=== PATIENT | male | born 1945 | race Caucasian/White ===

== ENCOUNTER 2016-12-25 23:48 | Emergency (ER) | payer MEDICARE ==
[2014-06-18 08:34] VITALS: BMI 32.3
[~2016-12-25 23:48] MED LIST: ACTOS45 MG PO; BAYER CHEWABLE81 MG PO; COREG12.5 MG PO; GLUCOPHAGE1000 MG PO; HYZAAR 50-12.51 TAB PO; LIPITOR80 MG; MAGNESIUM GLUC500 M1 PO; MULTIPLE VITAMI1 TA1 PO; PLAVIX75 MG PO; VICTOZA0.6 MG/0.1
== END 2016-12-26 05:03 | disposition home or self-care (01) ==
LOC: D.ER 23:48
DX: R33.9 Retention of urine, unspecified (principal); I10 Essential (primary) hypertension; N40.0 Benign prostatic hyperplasia without lower urinary tract symptoms; E11.9 Type 2 diabetes mellitus without complications; Z95.0 Presence of cardiac pacemaker

== ENCOUNTER 2017-01-03 05:29 | Day surgery (SDC) | payer MEDICARE ==
[2017-01-02 16:19] LABS: HEMATOCRIT 39.4 % (42.0-54.0); HEMOGLOBIN 13.1 g/dL (13.5-17.5); MCH 31.3 pg (26.0-34.0); MCHC 33.2 g/dL (31.0-37.0); MCV 94.3 fL (80.0-100.0); MEAN PLATELET VOLUME 9.8 fL (7.4-10.4); RBC 4.18 10x6/uL (4.20-6.10); RDW 13.8 % (11.5-14.5); WBC 6.3 10x3/uL (4.8-10.8)
[2017-01-02 16:32] LABS: CALC OSMOLALITY 283 mosm/kg (275-300); CALCIUM 8.9 mg/dL (8.5-10.1); CHLORIDE - SERUM 101 mmol/L (98-107); CREATININE - SERUM 0.8 mg/dL (0.6-1.3); POTASSIUM - SERUM 4.3 mmol/L (3.5-5.1); SODIUM 140 mmol/L (136-145); UREA NITROGEN 20 mg/dL (7-18); eGFR NON AFRICAN AMERICAN > 90 mL/min (90-120)
[2017-01-02 16:43] LABS: GLUCOSE 138 mg/dL (74-106)
[~2017-01-03] VITALS: Ht 177.8 cm; Wt 106.6 kg
--- NOTE | ~2017-01-03 | OP ---
PATIENT NAME: MARTA LOTT MEDICAL RECORD: [id number] :46 LOCATION:D[facility] ADMISSION DATE: SURGEON: HILL GUADALUPE MD DATE OF OPERATION: 01/03/2017 SURGEON: Hill Guadalupe MD. ANESTHESIA: General anesthesia by Dr. Stewart Miles. PREOPERATIVE DIAGNOSIS: Urinary retention due to obstructive benign prostatic hypertrophy. FINDINGS: Obstructive trilobar hyperplasia. Prior false passage in the left lateral lobe with old blood clots. Urethral meatus erosion. PROCEDURES PERFORMED: Cystoscopy, GreenLight laser transurethral resection of the prostate, total energy 117,623 joules, laser on time of 19 minutes 11 seconds. SPECIMENS: None. COMPLICATIONS: None. CLINICAL HISTORY: The patient is a 71-year-old male, who has been in chronic urinary retention. He has been on tamsulosin for a number of years, but it had failed to work for him. He is still taking it. Currently, he is on self-intermittent catheterization 3 times a day to drain his bladder. He is also on Plavix for cardiac arrhythmia. At one point, he experienced quite significant gross hematuria after he had difficulty inserting his catheter. This required a visit to the Emergency Room to irrigate his bladder out. He comes in today to have a GreenLight laser transurethral resection of the prostate. His prostate is rather large at about 70-80 grams by digital rectal examination. There are no nodules present to suggest carcinoma. The patient had withheld his Plavix for several days prior to the surgery. He was given Ancef 2 grams IV nutrition assistant to the OR. DESCRIPTION OF PROCEDURE: The patient was given induction of general anesthesia. He was then placed in dorsal lithotomy position and prepped and draped. On examination of the patient, we saw that the urethral meatus has a ventral erosion released from chronic catheterization. We did dilate the urethral meatus to 30-Tuvaluan using male sounds. The resectoscope is 27-Tuvaluan in size. A 30-degree lens with normal saline was used for visualization. The urethra was normal aside from the urethral meatal erosion. There are no strictures. Going up to the prostate, the lateral lobes are obstructive and they meet in the midline. He also has quite a large median lobe which deflects the scope anteriorly. Looking into the bladder, the bladder was heavily trabeculated with diverticula and cellules. There are single ureteral orifices on each side and these are located some distance away from the bladder neck. No bladder tumors were seen. On the left lateral lobe of the prostate, there is an old laceration and false passage, most likely from catheterization trauma. In this area, there are old blood clots also from his prior episode of gross hematuria. We started out with the laser energy of 80 conti. The resection was confined from the bladder neck to just proximal to the verumontanum. The verumontanum OPERATIVE REPORT [id number] MARTA LOTT was easily seen. We started out at the 6 o'clock with 80 conti of power to create a water flow channel. Eventually, once we got past the bladder neck and once the apex of the prostate was well resected to remove the bulk of the lateral lobes and the median lobe, we used a power of 120 conti. Occasionally, toward the end of the procedure as the tissue became more desiccated, we increased the power to 150 conti to facilitate removal of tissue faster. Once we had created a nice channel and gone down to the pseudocapsule and most of the planes, any visible venous bleeding was coagulated using the coagulation setting. No arterial bleeding was present at all during the entire surgery. Setting at the external urinary sphincter, we could see a clear channel all the way through the bladder neck into the bladder. With the water flow turned off, no visible bleeding was noted. We then removed the scope. A 22-Tuvaluan 3-way Carlson catheter was inserted into the bladder. The balloon was inflated with 30 cc of sterile water. We placed a catheter plug into the inflow port of the catheter. The catheter was put to bag drainage. The patient was then awakened and brought to the recovery room. He will go home with the Carlson catheter stay. His is a nurse and she knows how to remove the catheter for him tomorrow morning. I would hold off until the gross hematuria stops before restarting the Plavix. TRANSINT:[id number] Voice Confirmation ID: [id number] DOCUMENT ID: [id number] HILL GUADALUPE MD CC: [id number] DICTATION DATE: 01/03/17924 INSTRUCTOR CREELER: 01/03/17 1013 [facility] [address] [place] [address]
[~2017-01-03 05:29] MED LIST changes: +BETAPACE 80 MG80 MG PO; +CO Q-10200 MG PO; +COLACE100 MG PO; +FLOMAX0.4 MG PO; -VICTOZA0.6 MG/0.1; +VICTOZA0.6 MG/0.1 SQ
[2017-01-03 05:50] VITALS: BP 118/76; Ht 177.8 cm; Wt 106.6 kg
--- NOTE | 2017-01-03 08:15 | NUR ---
ARMS LEFT OUT BY SIDE, INESSA.
--- NOTE | 2017-01-03 11:15 | NUR ---
1105-DISCHARGE INSTRUCTIONS GIVEN TO PATIENT AND . ESCORTED VIA WHEELCHAIR TO PERSONAL CAR, LEFT WITH DRIVING.
== END 2017-01-03 11:05 | disposition home or self-care (01) ==
LOC: D.OPS 05:29 → D.PAN 07:30 → D.OPS 07:30 → D.PAN 08:30 → D.OPS 08:30
PROVIDERS: Anesthesiology
DX: N40.1 Benign prostatic hyperplasia with lower urinary tract symptoms (principal); R33.8 Other retention of urine; N36.8 Other specified disorders of urethra

== ENCOUNTER → 2017-02-18 17:27 | Outpatient (CLI) | payer MEDICARE ==
[2017-01-03 05:50] VITALS: BMI 33.7
[2017-02-18 18:19] LABS: APPEARANCE CLOUDY (CLEAR); COLOR YELLOW (YELLOW); GLUCOSE NEGATIVE (NEGATIVE); KETONE NEGATIVE (NEGATIVE); LEUKOCYTE ESTERASE 2+ (NEGATIVE); NITRITE POSITIVE (NEGATIVE); PROTEIN 1+ mg/dL (NEGATIVE); SPECIFIC GRAVITY 1.015 (1.005-1.020); UROBILINOGEN NORMAL (NORMAL)
[2017-02-18 18:20] LABS: BILIRUBIN NEGATIVE (NEGATIVE)
[2017-02-18 18:22] LABS: BACTERIA MODERATE /hpf (NONE SEEN); EPITHELIAL CELLS 0-5 /hpf (0-5); MUCUS <1+ /lpf (NONE SEEN); WHITE CELLS - URINE >50 /hpf (0-5)
== END | disposition home or self-care (01) ==
LOC: D.LABREF 17:27
PROVIDERS: Urology
DX: N39.0 Urinary tract infection, site not specified (principal)

== ENCOUNTER → 2017-02-21 10:45 | Outpatient (CLI) | payer MEDICARE ==
[2017-01-03 05:50] VITALS: BMI 33.7
== END | disposition home or self-care (01) ==
LOC: D.CT 10:45
DX: R10.9 Unspecified abdominal pain (principal); Z87.442 Personal history of urinary calculi; N39.0 Urinary tract infection, site not specified

== ENCOUNTER → 2017-03-04 19:18 | Outpatient (CLI) | payer MEDICARE ==
[2017-01-03 05:50] VITALS: BMI 33.7
[2017-03-04 21:23] LABS: APPEARANCE HAZY (CLEAR); BILIRUBIN NEGATIVE (NEGATIVE); COLOR YELLOW (YELLOW); GLUCOSE 100 mg/dL (NEGATIVE); KETONE NEGATIVE (NEGATIVE); LEUKOCYTE ESTERASE TRACE (NEGATIVE); NITRITE NEGATIVE (NEGATIVE); PROTEIN NEGATIVE (NEGATIVE); SPECIFIC GRAVITY 1.015 (1.005-1.020); UROBILINOGEN NORMAL (NORMAL)
[2017-03-04 21:25] LABS: BACTERIA MODERATE /hpf (NONE SEEN); EPITHELIAL CELLS OCC /hpf (0-5); HYALINE CAST OCC /lpf (NONE SEEN); RED CELLS - URINE >50 /hpf (0-5)
== END | disposition home or self-care (01) ==
LOC: D.LABREF 19:18
PROVIDERS: Urology
DX: N39.0 Urinary tract infection, site not specified (principal)

== ENCOUNTER 2017-03-11 05:20 | Day surgery (SDC) | payer MEDICARE ==
[2017-03-08 14:05] LABS: HEMATOCRIT 37.4 % (42.0-54.0); HEMOGLOBIN 12.3 g/dL (13.5-17.5); MCH 30.1 pg (26.0-34.0); MCHC 32.9 g/dL (31.0-37.0); MCV 91.4 fL (80.0-100.0); MEAN PLATELET VOLUME 9.7 fL (7.4-10.4); RBC 4.09 10x6/uL (4.20-6.10); RDW 14.3 % (11.5-14.5); WBC 4.5 10x3/uL (4.8-10.8)
[2017-03-08 14:33] LABS: ANION GAP 14.7 mmol/L (8-16); CARBON DIOXIDE 25.8 mmol/L (21.0-32.0); CREATININE - SERUM 1.1 mg/dL (0.6-1.3); POTASSIUM - SERUM 4.5 mmol/L (3.5-5.1)
[~2017-03-11] VITALS: Ht 177.8 cm; Wt 104.8 kg
[~2017-03-11 05:20] MED LIST changes: +CIPRO500 MG PO
[2017-03-11 06:32] VITALS: BP 137/79; Ht 177.8 cm; Wt 104.8 kg
--- NOTE | 2017-03-11 07:59 | NUR ---
0739 MERRICK UROJET INSERTED, INESSA.
--- NOTE | 2017-03-11 15:20 | OP ---
PATIENT NAME: MARTA LOTT MEDICAL RECORD: [id number] :46 LOCATION:D[facility] ADMISSION DATE: SURGEON: HILL GUADALUPE MD DATE OF OPERATION: 03/11/2017 SURGEON: Hill Guadalupe MD ANESTHESIA: MAC by Dr. Katz. PREOPERATIVE DIAGNOSES: Recurrent urinary tract infections, sigmoid diverticulitis, check for colovesical fistula. FINDINGS: Normal penile urethra. Lateral lobes still enlarged, signs of healing from his TURP. Very heavily trabeculated bladder. Due to bleeding from prostatic veins, I could not detect any fistula. PROCEDURES: Cystoscopy. BLOOD LOSS: None. CLINICAL HISTORY: This is a 71-year-old male, who was in urinary retention. In December of this year, he had a GreenLight laser TURP. Since then, he has had recurrent episodes of urinary tract infections. His latest CT shows sigmoid diverticulitis and he is currently on Cipro and Flagyl. This raised the question whether or not he had a colovesical fistula causing his recurrent UTIs. He comes now to have cystoscopy to check for fistula. Since he is already on antibiotics, we did not give him any further antibiotics. DESCRIPTION OF PROCEDURE: The patient was given IV sedation. He was placed in the dorsal lithotomy position and prepped and draped. His penile urethra is at the level of the barnard of the glans penis. Male sounds were placed to dilate the urethral meatus to 22-Eritrean. A 17-Eritrean cystoscope with 30-degree lens was used for visualization. The penile urethra was normal. No strictures or tumors were seen. Prostatic urethra still shows enlargement of the lateral lobes, which are still vascular. There was still some soft tissue at the apex and the bladder neck from the TURP surgery. Going into the bladder, the passage of the scope through the prostatic urethra induced some bleeding from the prostatic urethral veins. View of the bladder was therefore limited due to the blood in the urine. The bladder wall was heavily trabeculated. I could not detect any signs of a colovesical fistula. The bladder was emptied through the scope sheath and the sheath was removed entirely. The patient was brought back to the recovery room. TRANSINT:[id number] Voice Confirmation ID: [id number] DOCUMENT ID: [id number] HILL GUADALUPE MD at 5423 CC: [id number] DICTATION DATE: 03/11/17 0810 SENIOR JAVA PROGRAMMER ANALYST: 03/11/17 1039 [facility] [place] 03/11/17 [place] [id number] [place] [id number]
== END 2017-03-11 09:30 | disposition home or self-care (01) ==
LOC: D.OPS 05:20 → D.PAN 07:30 → D.OPS 07:30
PROVIDERS: Anesthesiology
DX: N30.00 Acute cystitis without hematuria (principal); I25.10 Atherosclerotic heart disease of native coronary artery without angina pectoris; I10 Essential (primary) hypertension; E11.9 Type 2 diabetes mellitus without complications; K21.9 Gastro-esophageal reflux disease without esophagitis; Z01.812 Encounter for preprocedural laboratory examination

== ENCOUNTER → 2017-03-27 21:42 | Outpatient (CLI) | payer MEDICARE ==
[2017-03-11 06:32] VITALS: BMI 33.2
[2017-03-27 22:14] LABS: APPEARANCE CLEAR (CLEAR); COLOR YELLOW (YELLOW); LEUKOCYTE ESTERASE 2+ (NEGATIVE); NITRITE NEGATIVE (NEGATIVE); PROTEIN NEGATIVE (NEGATIVE)
[2017-03-27 22:15] LABS: BILIRUBIN NEGATIVE (NEGATIVE); GLUCOSE NEGATIVE (NEGATIVE); KETONE NEGATIVE (NEGATIVE); UROBILINOGEN NORMAL (NORMAL)
[2017-03-27 22:16] LABS: BACTERIA MODERATE /hpf (NONE SEEN); RED CELLS - URINE 0-5 /hpf (0-5); WHITE CELLS - URINE 25-50 /hpf (0-5)
== END | disposition home or self-care (01) ==
LOC: D.LABREF 21:42
PROVIDERS: Urology
DX: N39.0 Urinary tract infection, site not specified (principal)

== ENCOUNTER → 2017-05-06 12:52 | Outpatient (CLI) | payer MEDICARE ==
[2017-03-11 06:32] VITALS: BMI 33.2
== END | disposition home or self-care (01) ==
LOC: D.RAD 10:30
DX: M25.511 Pain in right shoulder (principal)

== ENCOUNTER 2017-05-09 04:39 | Inpatient (IN) | payer MEDICARE ==
[~2017-05-09] VITALS: Ht 180.3 cm; Wt 103.9 kg
--- NOTE | ~2017-05-09 | HEMODYNAMI ---
PATIENT:MARTA LOTT MEDICAL RECORD: [id number] : 46 LOCATION:[facility] ADMISSION DATE: 05/09/17 Generatedon:05/16/201713:29 Patient name: MARTA LOTT Patient #: [id number] SSN: : 1945 Date of study: 05/16/2017 Page: Of Hemodynamic Procedure Report Patient Data Patient Demographics Procedure consent was obtained First Name: MARTA Gender: Male Last Name: OREN : 1945 [facility] Initial: C Age: 71 year(s) Patient #: [id number] Race: Unknown Additional ID: [id number] Contact details [address]: [address] [place] [address] State: [place] City: [place] Zip code: [address] Past Medical History Allergies Allergen Reaction Date Comments Reported Other allergy 05/16/2017 Amiodarone Admission Admission Data Admission Date: 05/09/2017 Admission Time: 7:28 Room #: D.2231 Height (in.): 71 BSA: 2.23 (m2) Height (cm.): 180.34 BMI: 31.94 (kg/m2) Weight (lbs.): 229 Weight (kg.): 103.87 Procedure Procedure Types Cath Procedure Diagnostic Procedure PAULINA Procedure Description Procedure Date Procedure Date: 05/16/2017 Procedure Start Time: 13:09 Procedure End Time: 13:22 Procedure Staff Name Function Baldemar Velarde MD Performing Physician Charity Mcclellan RN Nurse Andra Gillette RT Monitor Mignon May RT Monitor Procedure Data Procedure Complications No complications Procedure Medications Medication Administration Route Dosage Oxygen NC 2 l/min Hurricaine [place] P.O. 1 Sprays Refer to Anesthesia Notes for Sedation Medications Hemodynamics Rest BSA: 2.23 (m2) O2 Consumption: Estimated: 252.51 (ml/min) O2 Consumption indexed : Estimated:113.23 (ml/min/m) Heart Rate: 63 (bpm) Snapshots Pre Cath Intra NCS Post Cath Vital Signs Time Heart Resp SPO2 NIBP (mmHg) Rhythm Pain Sedation Rate (ipm) (%) Status Level (bpm) 13:07:09 60 10 96 181/84(137) NSR 0 (11) 10(A) , No pain 13:11:44 59 18 100 162/65(93) NSR 0 (11) 9(A) , No pain 13:16:02 60 11 100 138/59(106) NSR 0 (11) 9(A) , No pain 13:21:32 59 20 99 130/57(84) NSR 0 (11) 10(A) , No pain Medications Time Medication Route Dose Verified Delivered Reason Notes Effective ness by by 13:09:07 Oxygen NC 2 Baldemar Nash used for l/min St. Atif Mcclellan RN procedure MD 13:09:17 Hurricaine P[address]O. 1 Baldemar Nash Per [place] Sprays St. Atif Mcclellan RN physician 13:09:21 Refer to Baldemar Nash Anesthesia St. Atif Mcclellan RN Notes for MD Sedation Medications Procedure Log Time Note 12:54:01 Patient Height : 180.34 cm 12:54:07 Patient Weight : 103.87 kg 12:55:21 Diagnostic Cath status Elective 12:55:27 Andra Counts RT(R) sent for patient. Start room use. 12:55:28 Time tracking: Regular hours 12:55:33 Plan of Care:Hemodynamics will remain stable., Cardiac rhythm will remain stable., Comfort level will be maintained., Respiratory function will remain adequate., Patient/ family verbilizes understanding of procedure., Procedure tolerated without complication., Recovers from procedure without complications.. 12:55:44 Patient received from Med/Surg to CCL 2 Alert and oriented. Tansferred to table in Supine position. 13:03:44 Warm blankets applied, and donnie hugger turned on for patient comfort. 13:03:44 Correct patient and procedure confirmed by team. 13:03:47 Signed procedure consent form obtained from patient. 13:03:49 ECG and BP/O2 sat monitors applied to patient. 13:03:55 H&P Date Dictated: 05/15/2017 Within 30 days and on chart.. 13:03:57 Pre-procedure instructions explained to patient. 13:04:01 Family in waiting room. 13:04:03 Patient NPO since Midnight. 13:04:50 Patient allergic to Other allergyAmiodarone 13:05:54 Vital chart was started 13:06:52 Baseline sample Acquired. 13:06:56 Full Disclosure recording started 13:07:19 IV patent on arrival in left forearm with 0.9% NaCl at [facility]. 13:07:25 Lab results completed and on chart. 13:07:29 Physician arrived 13:07:32 --------ALL STOP TIME OUT------ 13:07:34 Final Timeout: patient, procedure, and site verified with staff and physician. All members of the team are in agreement. 13:07:43 Sedation plan: TIVA Propofol 13:09:07 Oxygen 2 l/min NC was administered by Charity Mcclellan RN; used for procedure; 13::17 Hurricaine [place] 1 Sprays P.O. was administered by Charity Mcclellan RN; Per physician; 13:09:21 Refer to Anesthesia Notes for Sedation Medications was administered by Charity Mcclellan RN; ; 13:09:50 Charlie present and monitoring patient for TIVA. 13:09:52 Procedure started. 13:10:24 Mani Donor Processor present for PAULINA. 13:10:25 PAULINA started. 13:20:29 PAULINA completed. 13:20:44 Procedure ended.(Physican Out) 13:21:04 Post procedure rhythm: unchanged. 13:21:10 Post procedure instruction explained to patient.Patient verbalizes understanding. 13:21:21 Procedure Complication : No complications 13:21:31 Vital chart was stopped 13:21:32 See physician's report for complete and final results. 13:21:38 Report given to Med/Surg. 13:21:42 Patient transfered to Med/Surg with Bed. 13:22:10 Procedure ended. 13:22:10 Full Disclosure recording stopped 13:22:13 End room use (Document Last) Signature Audit Mcconnell Stage Time Signature Unsigned Intra-Procedure 05/16/2017 Mignon May 1:29:16 PM RT(R) Signatures Monitor : Andra Signature : Counts RT Date : Time : Monitor : Mignon May Signature : RT Date : Time : [place] [id number] [facility] [address]
--- NOTE | ~2017-05-09 | TEE ---
PATIENT:MARTA LOTT MEDICAL RECORD: [id number] LOCATION:D.[facility] AGE OF PATIENT: 71 ADMISSION DATE: 05/09/17 SEX: M REFERRING PHYSICIAN: INTERPRETING PHYSICIAN: VIVIANA RIVERA MD TRANSESOPHAGEAL ECHOCARDIOGRAM PAULINA CHARGE Y INDICATIONS: ASSESS FOR VEGATATIONNS PREMEDICATIONS: PATIENT'S RESPONSE PROCEDURE DOPPLER MEASUREMENTS: LVIT LA PA 102 RA LVOT 97.0 RVOT 78.0 Asc. Ao 154 AV Gradient Peak 9.5 AV Mean 4.6 AV Area 2.5 MV Gradient Peak 7.2 MV Mean 2.7 MV Area INTERPRETATION: Doppler: 2-D: VEG NOTED ON ICD WIRE AND TV. COLOR FLOW DOPPLER NORMAL SALINE STUDY: MISCELLANOUS: DIAGNOSIS: PLAN: Development And Planning Engineer:3 Dr. Velarde Director Of Religious Life: Andres JIMENEZ COMMENTS: DATE OF SERVICE: 05/16/2017 Transesophageal Note DESCRIPTION OF PROCEDURE: General sedation via TIVA anesthesia, transesophageal Omniplane probe was placed in the distal esophagus and proximal stomach without difficulty. FINDINGS: LVH present. LV internal dimensions are normal. Wall motion is TRANSESOPHAGEAL ECHOCARDIOGRAM REPORT [id number] MARTA LOTT normal. EF is greater than 55%. Aortic valve is tricuspid with adequate opening. No significant AI by color flow imaging. Left atrium is well visualized. Left atrial appendage is well visualized with normal contractility. Mitral valve shows no prolapse, adequate excursion and mild MR. Right-sided chambers appear grossly normal. Mild TR. MISCELLANEOUS: ICD lead noted in the right atrium has fibrinous strands consistent with infected hardware. This was noticed in multiple views and planes. This was discussed with the patient's and Dr. Conklin as well. TRANSINT:[id number] Voice Confirmation ID: [id number] DOCUMENT ID: [id number] VIVIANA RIVERA MD CC: [id number] DICTATION DATE: 05/16/17 1353 TILE EDGER: 05/16/17 194 ADM [place] [id number] [place] [id number]
[2017-05-09 05:40] LABS: BASOPHILS 0 % (0-2); EOSINOPHILS 0 % (0-7); HEMATOCRIT 35.1 % (42.0-54.0); HEMOGLOBIN 12.3 g/dL (13.5-17.5); IMMATURE GRANULOCYTES 0.2 % (0-5); LYMPHOCYTES 4.6 % (15-50); MCH 30.5 pg (26.0-34.0); MCV 87.1 fL (80.0-100.0); MEAN PLATELET VOLUME 9.3 fL (7.4-10.4); MONOCYTES 1.5 % (2-11); NEUTROPHILS 93.7 % (40-80); RBC 4.03 10x6/uL (4.20-6.10); RDW 15.1 % (11.5-14.5); WBC 6.1 10x3/uL (4.8-10.8)
[2017-05-09 05:49] LABS: PLATELET COUNT 153 10x3/uL (130-400)
[2017-05-09 05:52] LABS: ALBUMIN 3.4 g/dL (3.4-5.0); ANION GAP 14.9 mmol/L (8-16); BILIRUBIN - TOTAL 1.8 mg/dL (0.2-1.3); CALCIUM 8.8 mg/dL (8.5-10.1); CARBON DIOXIDE 25.5 mmol/L (21.0-32.0); CREATININE - SERUM 1.5 mg/dL (0.6-1.3); POTASSIUM - SERUM 3.4 mmol/L (3.5-5.1)
[2017-05-09 05:59] LABS: MAGNESIUM - SERUM 1.2 mg/dL (1.8-2.4)
[2017-05-09 06:15] LABS: C-REACTIVE PROTEIN 35.5 mg/dL (0.0-0.9)
[2017-05-09 07:04] LABS: INR 1.02 (0.85-1.17); PROTIME 13.3 SECONDS (11.6-15.0)
--- NOTE | 2017-05-09 08:00 | NUR ---
PT RECEIVED TO FLOOR FROM ER, ORIENTED TO ROOM, DENIES NEEDS, BED LOWEST POSITION, CALL LIGHT IN REACH, WILL CONTINUE TO MONITOR
[2017-05-09 11:12] LABS: APPEARANCE CLOUDY (CLEAR); BILIRUBIN NEGATIVE (NEGATIVE); COLOR ORANGE (YELLOW); EPITHELIAL CELLS 0-5 /hpf (0-5); GLUCOSE 100 mg/dL (NEGATIVE); KETONE SMALL mg/dL (NEGATIVE); LEUKOCYTE ESTERASE TRACE (NEGATIVE); NITRITE NEGATIVE (NEGATIVE); PROTEIN TRACE mg/dL (NEGATIVE); RED CELLS - URINE 0-5 /hpf (0-5); SPECIFIC GRAVITY 1.025 (1.005-1.020); WHITE CELLS - URINE 0-5 /hpf (0-5)
[2017-05-09 11:13] LABS: AMORPHOUS SEDIMENT <1+ /lpf (NONE SEEN); BACTERIA MODERATE /hpf (NONE SEEN); HYALINE CAST 0-5 /lpf (NONE SEEN); MUCUS <1+ /lpf (NONE SEEN)
[2017-05-09 12:37] VITALS: Ht 180.3 cm; Wt 103.9 kg
[2017-05-09 14:21] VITALS: BP 118/59
[2017-05-09 14:58] LABS: ERYTHROCYTE SEDIMENTATION RATE 55 mm/hr (0-20)
[2017-05-09 17:01] VITALS: BP 133/46
--- NOTE | 2017-05-09 19:40 | NUR ---
ASSESSMENT PER FLOW SHEET.CUSTOMER SERVICE CORRESPONDENCE CLERK CONTROLLING PAIN.BATH PER .DENIES NEEDS AT PRESENT.CALL LIGHT IN REACH.MONITOR FOR NEEDS.
[2017-05-09 20:00] VITALS: BP 108/49
[2017-05-10] VITALS: BP 112/67
--- NOTE | 2017-05-10 00:55 | NUR ---
REMAINS AT BEDSIDE.PT WITHOUT DISTRESS.TELEMETRY AVAILABLE 66 SR WITH FIRST DEGREE BLOCK PER COMMERCIAL FISHERMAN.
--- NOTE | 2017-05-10 02:35 | NUR ---
SLEEPING ON BACK,WITHOUT DISTRESS. REMAINS AT BEDSIDE.
[2017-05-10 04:00] VITALS: BP 116/49
--- NOTE | 2017-05-10 05:14 | NUR ---
STATES PAIN 8/10 AFTER BOLUS ORDERED. INSTRUCTED DELIVERY MERCHANDISER USE TILL PAIN CONTROLLED
--- NOTE | 2017-05-10 05:31 | NUR ---
BS 181,TREATMENT ORDERED DECLINED PER PT AND . REMAINS WITHOUT CHANGE.NPO ORDERED
[2017-05-10 06:52] LABS: HEMATOCRIT 28.3 % (42.0-54.0); LYMPHOCYTES 3.6 % (15-50); MCH 30.2 pg (26.0-34.0); MCHC 34.6 g/dL (31.0-37.0); MCV 87.3 fL (80.0-100.0); RBC 3.24 10x6/uL (4.20-6.10); RDW 15.3 % (11.5-14.5)
[2017-05-10 06:58] LABS: HEMOGLOBIN 9.8 g/dL (13.5-17.5); PLATELET COUNT 113 10x3/uL (130-400); WBC 8.1 10x3/uL (4.8-10.8)
[2017-05-10 07:09] LABS: ANION GAP 12.4 mmol/L (8-16); CALCIUM 7.8 mg/dL (8.5-10.1); CARBON DIOXIDE 26.4 mmol/L (21.0-32.0); POTASSIUM - SERUM 3.8 mmol/L (3.5-5.1)
[2017-05-10 07:11] LABS: CREATININE - SERUM 2.8 mg/dL (0.6-1.3)
--- NOTE | 2017-05-10 07:45 | NUR ---
PT AOX4 RESP EVEN AND NONLABORED PT DENIES NEEDS AT THIS TIME IV TO LEFT WRIST PATENT AND INTACT AT THIS TIME SRX2 BED AT LOWEST SETTING CALL LIGHT WITHIN REACH WILL CONTINUE TO MONITOR
--- NOTE | 2017-05-10 08:12 | NUR ---
Patient Name: MARTA LOTT Admission Status: ER Accout number: [id number] Admission Date: 05-09-2017 : 1945 Admission Diagnosis: Attending: MICHELLE SHIN Current LOS: 1 Anticipated DC Date: 05-13-2017 Planned Disposition: Home Primary Insurance: [facility] Discharge Planning Comments: CM MET WITH PATIENT AND (JANET) REGARDING D/C NEEDS AND PLANS. STATED SHE WILL DRIVE HIM HOME WHEN DISCHARGED. THERE IS ONE STEP TO ENTER HOME AND ONE FLIGHT OF STAIRS INSIDE HOME WHICH PATIENT DOES NOT USE. PATIENT IS INDEPENDENT WITH HIS CARE AND IS A DIABETIC/CHECKS HIS SUGAR DAILY AND PRN PER . PATIENTS PCP IS DR. COBB AND PHARMACY IS [facility] IN [place]. DOES NOT THINK PATIENT WILL NEED HOME HEALTH AT THIS TIME. CM WILL CONTINUE TO FOLLOW PATIENT WITH D/C NEEDS AND PLANS. PCP DR[facility]- [phone] JANET () [phone] Cath Lab Nurse: Kristen Doe Is the patient Alert and Oriented? Yes 0 * How many steps to enter\exit or inside your home? 1/1FLIGHT 0 * PCP DR. COBB 0 * [facility] 0 * Preadmission Environment Home with Family 0 * ADLs Independent 0 * Equipment Glucometer 0 * List name and contact numbers for known caregivers / representatives who currently or will assist patient after discharge: JANET () [phone] 0 * Community resources currently utilized None 0 * Additional services required to return to the preadmission environment? Yes 0 * Can the patient safely return to the preadmission environment? Yes 0 * Has this patient been hospitalized within the prior 30 days at any hospital? No 0 Grand Total: 0
[2017-05-10 08:32] VITALS: BP 88/43
--- NOTE | 2017-05-10 09:12 | NUR ---
DOCUMENTATION FOR 05/09 ENTERED ON WRONG PATIENT
[2017-05-10 14:13] VITALS: BP 135/55
--- NOTE | 2017-05-10 16:15 | NUR ---
RECEIVED PT FROM OR WITH BLOCK TO RT SHOULDER, NOTED SCANT BLEEDING ON DRESSING.
[2017-05-10 17:00] VITALS: BP 129/66
--- NOTE | 2017-05-10 17:05 | NUR ---
returned from pacu per bed. awake and alert. dressing to right shoulder with drainage noted-outlined to monitor. vital signs per flowsheet. call light in reach. at bedside
[2017-05-10 17:35] LABS: PROTEIN - BODY FLUID 7.4 G/DL
[2017-05-10 19:14] LABS: EOS BF 7 %; LYMPH - BF 25 %; MACROPHAGES BF 1 %; MESOTHELIALS BF 1 %; NEUT - BF 66 %
--- NOTE | 2017-05-10 19:20 | NUR ---
ALERT/AWAKE RATES PAIN LEVEL OF RT SHOULDER AT 8 ON NUMBER SCALE. IN CONTACT ISOLATION FOR MRSA. IS PRESENT IN ROOM. RT ARM ELEVATED ON PILLOW. DRSG ON RT SHOULDER C/D/I. IV IN L WRIST WITH NS INFUSING AT 125 ML/HR. VITAL SIGNS STABLE. HAS SUBSURFACE AUGMENTEE OPERATOR WITH DILAUDID FOR PAIN CONTROL. ORIENTED TO CL FOR ANY NEEDS.
[2017-05-10 20:00] VITALS: BP 116/63
--- NOTE | 2017-05-10 20:20 | NUR ---
ADMIN VANC IV PER ORDER. CHECKED BS AT 267. HOOKED UP SCD'S TO [facility]. VITAL SIGNS STABLE.
--- NOTE | 2017-05-10 23:20 | NUR ---
ADMIN TYLENOL 650MG PO FOR ELEVATED TEMP 100.8 F. REQUESTED ICE PACK FOR RT ARM. SOME SWELLING NOTED. WILL CONT TO MONITOR.
[2017-05-11 00:08] VITALS: BP 124/60
--- NOTE | 2017-05-11 01:29 | NUR ---
RECEIVED REPORT FROM ANGELA DHILLON AND CARE OF PT ASSUMED. PT LYING IN SUPINE POSITION WITH EYES CLOSED. IV IN LEFT WRIST PATENT WITH NS INFUSING AT 125 ML / HR. WILL MONITOR CLOSELY FOR NEEDS.
[2017-05-11 04:00] VITALS: BP 126/63
[2017-05-11 05:26] LABS: ANION GAP 13.4 mmol/L (8-16); BILIRUBIN - TOTAL 0.7 mg/dL (0.2-1.3); CALCIUM 7.8 mg/dL (8.5-10.1); CARBON DIOXIDE 21.3 mmol/L (21.0-32.0); CREATININE - SERUM 2.1 mg/dL (0.6-1.3); POTASSIUM - SERUM 3.7 mmol/L (3.5-5.1); PROTEIN - SERUM 5.6 g/dL (6.4-8.2)
[2017-05-11 05:29] LABS: BASOPHILS 0.1 % (0-2); EOSINOPHILS 0.8 % (0-7); HEMATOCRIT 28.8 % (42.0-54.0); HEMOGLOBIN 9.6 g/dL (13.5-17.5); IMMATURE GRANULOCYTES 0.6 % (0-5); LYMPHOCYTES 9.9 % (15-50); MCH 29.6 pg (26.0-34.0); MCHC 33.3 g/dL (31.0-37.0); MCV 88.9 fL (80.0-100.0); MEAN PLATELET VOLUME 9.5 fL (7.4-10.4); MONOCYTES 7.5 % (2-11); NEUTROPHILS 81.1 % (40-80); RBC 3.24 10x6/uL (4.20-6.10); RDW 15.4 % (11.5-14.5); WBC 7.1 10x3/uL (4.8-10.8)
[2017-05-11 05:31] LABS: ALBUMIN 2.1 g/dL (3.4-5.0)
[2017-05-11 05:34] LABS: PLATELET COUNT 140 10x3/uL (130-400)
--- NOTE | 2017-05-11 08:15 | NUR ---
DRESSING TO R SHOULDER COVERED WITH PLASTIC. PATIENT SHOWERED. DENIES ANY NEEDS AT THIS TIME.
--- NOTE | 2017-05-11 09:05 | NUR ---
ASSESSMENT COMPLETE. IV TO L WRIST PATENT. NS INFUSING AT 125 CC/HR VIA PUMP. IN HOME TUTOR DILAUDID 0.2-10-4 IN USE FOR PAIN CONTROL. GAUGER CHIEF SHOWING SR 71 PER TECH. O2 3L NC IN USE. DRESSING TO R SHOULDER INTACT. SWELLING NOTED TO R ARM. AT BEDSIDE. DENIES ANY NEEDS AT THIS TIME.
[2017-05-11 09:50] VITALS: BP 118/66
--- NOTE | 2017-05-11 10:39 | NUR ---
RESTING QUIELTY IN BED. DENIES ANY NEEDS AT PRESENT.
[2017-05-11 11:51] VITALS: BP 124/67
--- NOTE | 2017-05-11 15:18 | NUR ---
SITTING UP IN CHAIR. AT BEDSIDE. DENIES ANY NEEDS AT THIS TIME.
[2017-05-11 16:20] VITALS: BP 112/72
--- NOTE | 2017-05-11 17:41 | NUR ---
NO CHANGES NOTED AT PRESENT.
--- NOTE | 2017-05-11 19:00 | NUR ---
REPORT RECEIVED AND CARE OF PT ASSUMED. PT SITTING UP IN CHAIR AT THIS TIME. IV IN LEFT FA PATENT WITH NS INFUSING AT 125 ML / HR. O2 IN USE VIA NC AT 3L. DRESSING ON RIGHT SHOULDER CLEAN, DRY AND INTACT. TELEMETRY REPORTS SR AT 76. WILL MONITOR CLOSELY FOR NEEDS. CALL LIGHT WITHIN REACH.
[2017-05-11 20:00] VITALS: BP 132/85
--- NOTE | 2017-05-11 21:00 | NUR ---
HS MEDICATIONS GIVEN. FSBS 242 THIS CHECK REQUIRING COVERAGE WITH 8 UNITS OF HUMALOG PER SLIDING SCALE. WILL CONTINUE TO MONITOR FOR NEEDS. IS AT BEDSIDE.
--- NOTE | 2017-05-11 23:14 | NUR ---
PT RESTING IN SUPINE POSITION WITH UNLABORED BREATHING. IV IN LEFT FA PATENT. IS AT BEDSIDE. CALL LIGHT WITHIN REACH.
[2017-05-12] VITALS: BP 139/74
[2017-05-12 04:00] VITALS: BP 137/79
[2017-05-12 05:24] LABS: BASOPHILS 0.1 % (0-2); HEMATOCRIT 30.9 % (42.0-54.0); HEMOGLOBIN 10.2 g/dL (13.5-17.5); IMMATURE GRANULOCYTES 0.7 % (0-5); LYMPHOCYTES 14.6 % (15-50); MCH 29.7 pg (26.0-34.0); MCV 89.8 fL (80.0-100.0); MEAN PLATELET VOLUME 9.5 fL (7.4-10.4); MONOCYTES 10.3 % (2-11); NEUTROPHILS 73.3 % (40-80); PLATELET COUNT 144 10x3/uL (130-400); RBC 3.44 10x6/uL (4.20-6.10); RDW 15.4 % (11.5-14.5); WBC 6.8 10x3/uL (4.8-10.8)
[2017-05-12 05:53] LABS: ANION GAP 15.6 mmol/L (8-16); BILIRUBIN - TOTAL 0.5 mg/dL (0.2-1.3); CALCIUM 8.2 mg/dL (8.5-10.1); POTASSIUM - SERUM 3.6 mmol/L (3.5-5.1); PROTEIN - SERUM 5.7 g/dL (6.4-8.2)
[2017-05-12 05:56] LABS: CREATININE - SERUM 1.3 mg/dL (0.6-1.3)
--- NOTE | 2017-05-12 06:09 | NUR ---
BLOOD SUGAR 210 THIS AM REQUIRING COVERAGE WITH 8 UNITS OF HUMALOG PER SLIDING SCALE.
--- NOTE | 2017-05-12 07:34 | NUR ---
SLEEPING, BREATHING EVEN AND UNLABORED, AT BEDSIDE, NO DISTRESS NOTED, BED LOWEST POSITION, CALL LIGHT IN REACH, WILL CONTINUE TO MONITOR
[2017-05-12 08:00] VITALS: BP 141/69
[2017-05-12 11:00] VITALS: BP 137/73
[2017-05-12 18:23] VITALS: BP 137/65
--- NOTE | 2017-05-12 19:00 | NUR ---
REPORT RECEIVED AND CARE OF PT ASSUMED. PT LYING IN SEMI BLANDON'S POSITION VISITING WITH FAMILY MEMBER. IV IN LEFT FA PATENT WITH NS INFUSING AT 75 ML / HR. DESIGN TECHNOLOGY PROFESSOR / DILAUDID IN USE FOR PAIN CONTROL, WITH PAIN WELL CONTROLLED AT THIS ASSESSMENT. DRESSING ON RIGHT SHOULDER CLEAN AND DRY. TELEMETRY REPORTS ST WITH OCC PVC'S AT THIS TIME. WILL MONITOR [place] FOR NEEDS. CALL LIGHT WITHIN REACH.
[2017-05-12 20:00] VITALS: BP 135/71
--- NOTE | 2017-05-12 20:38 | NUR ---
HS MEDICATIONS GIVEN. FSBS 211 AT THIS CHECK REQUIRING COVERAGE WITH 8 UNITS OF HUMALOG. GAVE APPLE JUICE FOR HS SNACK, MIXED WITH MIRALAX PER ORDER. WILL MONITOR CLOSELY FOR NEEDS. CALL LIGHT WITHIN REACH.
--- NOTE | 2017-05-12 21:10 | NUR ---
PATIENT ASSISTED UP TO USE RESTROOM TO VOID. STILL NO BM THIS SHIFT.
[2017-05-13] VITALS: BP 134/75
[2017-05-13 03:35] LABS: BASOPHILS 0.2 % (0-2); EOSINOPHILS 1.8 % (0-7); HEMATOCRIT 28.2 % (42.0-54.0); HEMOGLOBIN 9.5 g/dL (13.5-17.5); IMMATURE GRANULOCYTES 1.5 % (0-5); LYMPHOCYTES 17.3 % (15-50); MCH 29.9 pg (26.0-34.0); MCHC 33.7 g/dL (31.0-37.0); MCV 88.7 fL (80.0-100.0); MEAN PLATELET VOLUME 9.2 fL (7.4-10.4); MONOCYTES 12.3 % (2-11); NEUTROPHILS 66.9 % (40-80); PLATELET COUNT 145 10x3/uL (130-400); RBC 3.18 10x6/uL (4.20-6.10); RDW 15.4 % (11.5-14.5); WBC 6.2 10x3/uL (4.8-10.8)
[2017-05-13 03:54] LABS: ALBUMIN 1.9 g/dL (3.4-5.0); ALKALINE PHOSPHATASE 100 U/L (46-116); CALC OSMOLALITY 283 mosm/kg (275-300); CALCIUM 8.4 mg/dL (8.5-10.1); CARBON DIOXIDE 25.1 mmol/L (21.0-32.0); CHLORIDE - SERUM 103 mmol/L (98-107); GLUCOSE 211 mg/dL (74-106); MAGNESIUM - SERUM 1.7 mg/dL (1.8-2.4); PHOSPHOROUS 3.6 mg/dL (2.5-4.9); POTASSIUM - SERUM 3.6 mmol/L (3.5-5.1); PROTEIN - SERUM 5.5 g/dL (6.4-8.2); SODIUM 137 mmol/L (136-145); UREA NITROGEN 23 mg/dL (7-18); eGFR NON AFRICAN AMERICAN 78 mL/min (90-120)
[2017-05-13 03:56] LABS: ALT (SGPT) 60 U/L (10-68)
[2017-05-13 04:00] VITALS: BP 126/70
--- NOTE | 2017-05-13 07:30 | NUR ---
PT ASLEEP WITH NO VISABLE SIGNS OF PAIN OR DISCOMFORT AT THIS TIME. BED IN LOW POSITION AND CALL LIGHT WITHIN REACH. WILL CONTINUE TO MONITOR.
[2017-05-13 08:59] VITALS: BP 128/53
[2017-05-13 11:41] VITALS: BP 164/68
[2017-05-13 16:19] VITALS: BP 149/74
--- NOTE | 2017-05-13 19:00 | NUR ---
Received patient resting in bed with eyes open and family at bedside, assessment completed per flowsheet. Patient AO x4, calm and cooperative. Eyes PERRLA @ 4mm with brisk response, sclera is white. S1/S2 noted NSR with rare PVC and HR 73, Pacer/Defib noted L upper chest. Breathing is even and unlabored on room air with O2 sat 96%, lung sounds clear throughout. Patient ambulates self to bathroom, no difficulties reported. Full ROM all extremities with all pulses palpable, cap refill < 3 sec and skin warm/dry to touch. Patient c/o incisional pain R shoulder, will provide PRN medication when available. No further needs at this time, all VSS and will continue to monitor.
[2017-05-13 20:00] VITALS: BP 163/77
--- NOTE | 2017-05-13 21:00 | NUR ---
Patient resting in bed with eyes open watching TV, all HS meds given without difficulty. Assisted using urinal jug with 150ml clear yellow urine noted. No further needs at this time, all VSS and will continue to monitor.
--- NOTE | 2017-05-13 23:00 | NUR ---
Reassessment completed per flowsheet, patient resting in bed with eyes closed. S1/S2 noted NSR with rare PVC and HR 80, pacer/defib noted L upper chest. Breathing is even and unlabored on room air with O2 sat 96%. All pulses palpable with cap refill < 3 sec, no further needs at this time. All VSS and will continue to monitor.
--- NOTE | 2017-05-14 01:00 | NUR ---
Patient resting in bed with eyes closed, breathing is even and unlabored on room air. No further needs at this time, all VSS and will continue to monitor.
--- NOTE | 2017-05-14 03:00 | NUR ---
Reassessment completed per flowsheet, patient resting in bed with eyes closed. S1/S2 noted NSR with rare PVC on telemetry with HR 70. Breathing is even and unlabored on room air with O2 sat 96%. All pulses palpable and cap refill < 3 sec, skin warm/dry to touch. Denies pain or other needs at this time, all VSS and will continue to monitor.
[2017-05-14 03:59] VITALS: BP 145/66
--- NOTE | 2017-05-14 05:00 | NUR ---
Patient resting in bed with eyes closed, breathing is even and unlabored. no further needs at this time, all VSS and will continue to monitor.
[2017-05-14 06:37] LABS: BASOPHILS 0.3 % (0-2); EOSINOPHILS 0.7 % (0-7); HEMATOCRIT 31.8 % (42.0-54.0); HEMOGLOBIN 10.7 g/dL (13.5-17.5); IMMATURE GRANULOCYTES 3.7 % (0-5); LYMPHOCYTES 19.5 % (15-50); MCH 30.1 pg (26.0-34.0); MCHC 33.6 g/dL (31.0-37.0); MCV 89.3 fL (80.0-100.0); MEAN PLATELET VOLUME 8.9 fL (7.4-10.4); MONOCYTES 9.4 % (2-11); NEUTROPHILS 66.4 % (40-80); RBC 3.56 10x6/uL (4.20-6.10)
[2017-05-14 06:46] LABS: PLATELET COUNT 215 10x3/uL (130-400)
[2017-05-14 06:52] LABS: ALBUMIN 2.1 g/dL (3.4-5.0); ANION GAP 16.2 mmol/L (8-16); BILIRUBIN - TOTAL 0.5 mg/dL (0.2-1.3); CALCIUM 8.8 mg/dL (8.5-10.1); CARBON DIOXIDE 25.4 mmol/L (21.0-32.0); CREATININE - SERUM 1.1 mg/dL (0.6-1.3); POTASSIUM - SERUM 3.6 mmol/L (3.5-5.1)
--- NOTE | 2017-05-14 08:25 | NUR ---
PT REQUEST PAIN MED. STATES HIS PAIN IS ABOUT AN 8. PAIN IS SHOULDER AND BACK. PAIN MED GIVEN. PT REQUEST FOR ASSISTANCE TO BR. ASSISTED UP. PT BACK TO BED AND BREAKFAST SERVED.
--- NOTE | 2017-05-14 09:15 | NUR ---
MEDS GIVEN. UP IN CHAIR. REQUEST PT. PAIN IS ABOUT A 6.
[2017-05-14 09:24] VITALS: BP 154/72
--- NOTE | 2017-05-14 13:51 | NUR ---
NUTRITION MONITORING & EVAL CHART REVIEWED, PT VISIT. TOLERATING ADA DIET WITH ~ 50% INTAKE RECENT MEALS. WILL CONTINUE TO PROVIDE DIET, MONITOR PO INTAKE. RD FOLLOWING
[2017-05-14 14:02] VITALS: BP 125/65
--- NOTE | 2017-05-14 14:18 | CN ---
PATIENT NAME:MARTA LOTT MEDICAL RECORD: [id number] : 47 LOCATION:D.MS [id number] ADMIT DATE: 05/09/17 ACCOUNT: [id number] CONSULTING PHYSICIAN: VIVIANA RIVERA MD REFERRING PHYSICIAN: MICHELLE SHIN MD DATE OF CONSULTATION: 05/13/2017 HISTORY OF PRESENT ILLNESS: A 71-year-old gentleman with cardiovascular history, history of interventional LAD as well as a history of ICD placement, was admitted and found to have a septic joint, this have been debrided by Dr. Sloan, is noted to have increasing arrhythmias as well as PACs and PVCs, no high-grade sustained arrhythmias. We are asked to see him concerning his cardiovascular status. Of note, he is growing Gram-positive cocci from his cultures. PAST MEDICAL HISTORY: Includes: 1. History of cardiac arrhythmias. 2. Coronary artery disease as described above. 3. Hypertension. 4. Hyperlipidemia. 5. Diabetes mellitus. MEDICATIONS: Include Glucophage 1 gram b.i.d., Actos 45 mg daily, Victoza 1.2 mg daily, aspirin 81 daily, Hyzaar 50/12.5 daily, Lipitor 80 daily and Betapace 80 b.i.d. ALLERGIES: AMIODARONE. SOCIAL HISTORY: Lives in [facility]. He is a nonsmoker. He takes care of his ADLs on a regular basis. REVIEW OF SYSTEMS: The patient reports easy bruising but reports no swollen glands. The patient reports no fever, no night sweats, no significant weight gain, no significant weight loss. No significant exercise tolerance. The patient reports no dry eyes, no irritation, no vision change. Patient reports no difficulty hearing and no ear pain. Patient reports no frequent nose bleeds or nose and sinus problems. Patient reports on arm pain on exertion. No shortness of breath while lying down. No history of heart murmur. Patient reports no cough, no wheezing or coughing up blood. Patient reports no abdominal pain, no vomiting. Normal appetite. No diarrhea and not vomiting blood. No nausea and no constipation. Patient reports no incontinence. No difficulty urinating. No hematuria. No increased frequency. Patient reports no muscle aches. No weakness, no arthralgias, no back pain. No swelling of the extremities. Patient reports no abnormal mole, no jaundice, no rashes. Reports no loss of consciousness. No weakness and no numbness. No seizures, dizziness, or headaches. The patient reports no depression, no sleep disturbance, feeling safe in a relationship and no alcohol abuse. Patient reports on fatigue. Reports no runny nose or sinus pressure. No itching, no hives, and no frequent sneezing. PHYSICAL EXAMINATION: GENERAL: Pleasant gentleman, in no acute distress. VITAL SIGNS: Blood pressure 128/53, pulse 71, occasional extrasystole. NECK: No bruits noted. HEART: Regular, II/ systolic ejection murmur. CONSULT REPORT [id number] MARTA LOTT LUNGS: Good air excursion. ABDOMEN: Soft, nontender. EXTREMITIES: Pulses are well preserved, 2+ with no edema. IMPRESSION: Increasing premature atrial contractions and premature ventricular contraction secondary to underlying recent debridement as well as underlying infectious disease process. ICD has been interrogated. No high-grade arrhythmias noted. We would increase sotalol to 120 b.i.d., suspect this can be decreased to his baseline rate once current illness improves. Further recommendations based on the above. TRANSINT:[id number] Voice Confirmation ID: [id number] DOCUMENT ID: [id number] VIVIANA RIVERA MD at 1418 CC: [id number] DICTATION DATE: 05/13/171126 AREA ATTENDANT: 05/13/17 1711 ADM IN [facility] [address] [place] [address]
--- NOTE | 2017-05-14 15:41 | NUR ---
PT ASSISTED UP TO BATHROOM. HE TOLERATED WELL. IT JUST HURTS HIS R SHOULDER.
[2017-05-14 16:20] VITALS: BP 173/96
--- NOTE | 2017-05-14 19:20 | NUR ---
RECIEVED SHIFT REPORT. PT IS SITTING UP IN CHAIR. ALERT AND ORIENTED AND ABLE TO VERBALIZE NEEDS. IV IS PATENT AND SALINE LOC AT THIS TIME. SHEKHAR HOSE OFF AT THIS TIME DUE TO HELPING WITH SHOWER. PT IS AMBULATORY BUT WAS INSTRUCTED TO CALL FOR ANY ASSISTANCE NEEDED. DRESSING TO RIGHT SHOULDER C/D/I. PT STATES PAIN IS 8/10. NO NEEDS ARE VERBALIZED AT THIS TIME. WILL CONTINUE TO MONITOR. SIDE RAILS ARE UP X 2. BED IS IN LOWEST POSITION. CALL LIGHT IS WITHIN REACH.
[2017-05-14 20:00] VITALS: BP 152/68
--- NOTE | 2017-05-14 21:06 | NUR ---
SHIFT ASSESSMENT COMPLETED. NIGHT MEDS GIVEN WITH NO PROBLEMS. PT RECIEVED 16 UNITS INSULIN PER SLIDING SCALE FOR GTVX=[id number]. PT C/O PAIN 06/25. ADMINISTERED PRESCRIBED PRN PERCOCET PER ORDER. DENIES FURTHER NEEDS. TELEMETRY AND SHEKHAR HOSE PLACED BACK ON PER ORDER. WILL MONITOR. SIDE RAILS X 2. BED LOW. CALL LIGHT IN REACH.
[2017-05-15] VITALS: BP 154/79
[2017-05-15 04:00] VITALS: BP 162/69
[2017-05-15 06:43] LABS: BASOPHILS 0.3 % (0-2); EOSINOPHILS 1.9 % (0-7); HEMATOCRIT 27.8 % (42.0-54.0); HEMOGLOBIN 9.5 g/dL (13.5-17.5); IMMATURE GRANULOCYTES 4.4 % (0-5); LYMPHOCYTES 25.3 % (15-50); MCH 30.1 pg (26.0-34.0); MCHC 34.2 g/dL (31.0-37.0); MEAN PLATELET VOLUME 8.8 fL (7.4-10.4); MONOCYTES 9.7 % (2-11); NEUTROPHILS 58.4 % (40-80); PLATELET COUNT 217 10x3/uL (130-400); RBC 3.16 10x6/uL (4.20-6.10); RDW 14.8 % (11.5-14.5); WBC 6.2 10x3/uL (4.8-10.8)
[2017-05-15 07:06] LABS: ALBUMIN 1.9 g/dL (3.4-5.0); ALKALINE PHOSPHATASE 86 U/L (46-116); BILIRUBIN - TOTAL 0.45 mg/dL (0.2-1.3); CALCIUM 8.3 mg/dL (8.5-10.1); CARBON DIOXIDE 27.4 mmol/L (21.0-32.0); CHLORIDE - SERUM 102 mmol/L (98-107); CREATININE - SERUM 0.9 mg/dL (0.6-1.3); POTASSIUM - SERUM 3.3 mmol/L (3.5-5.1); PROTEIN - SERUM 5.5 g/dL (6.4-8.2); SODIUM 140 mmol/L (136-145); eGFR NON AFRICAN AMERICAN 89 mL/min (90-120)
[2017-05-15 07:10] LABS: ALT (SGPT) 27 U/L (10-68); CALC OSMOLALITY 282 mosm/kg (275-300); GLUCOSE 166 mg/dL (74-106); UREA NITROGEN 12 mg/dL (7-18)
--- NOTE | 2017-05-15 07:54 | NUR ---
AWAKE AND ALERT. RESPIRATIONS EVEN AND NON LABORED WITH DRESSING TO SHOULDER C/D/I. CALL LIGHT IN REACH, WILL CONTINUE WITH PLAN OF CARE.
[2017-05-15 08:21] VITALS: BP 135/63
--- NOTE | 2017-05-15 09:55 | NUR ---
PRN NORCO ADMINISTERED PER ORDER AT THIS TIME FOR INCISIONAL PAIN. ASSESSMENT PERFORMED PER FLOWSHEET. CALL LIGHT IN REACH, WILL CONTINUE WITH PLAN OF CARE.
[2017-05-15 12:00] VITALS: BP 155/71
--- NOTE | 2017-05-15 13:15 | NUR ---
PICC LINE PATENT ACCORDING TO XRAY. IV ANTIBIOTIC STARTED AT THIS TIME.
--- NOTE | 2017-05-15 14:37 | NUR ---
PRN PERCOCET ADMINISTERED AT THIS TIME FOR PAIN 8/10 INCISIONAL.
[2017-05-15 16:31] VITALS: BP 150/63
--- NOTE | 2017-05-15 19:20 | NUR ---
RECIEVED SHIFT REPORT. PT IS LYING IN BED. ALERT AND ORIENTED AND ABLE TO VERBALIZE NEEDS. IV IS PATENT AND SALINE LOC AT THIS TIME. PT IS AMBULATORY BUT WAS INSTRUCTED TO CALL FOR ANY ASSISTANCE NEEDED. SHEKHAR HANKS ON. DRESSING TO RIGHT SHOULDER C/D/I. PT STATES PAIN IS 8/10. NO NEEDS ARE VERBALIZED AT THIS TIME. VISITORS ARE AT THE BEDSIDE. SIDE RAILS ARE UP X 2. BED IS IN LOWEST POSITION. CALL LIGHT IS WITHIN REACH.
[2017-05-15 20:00] VITALS: BP 154/68
--- NOTE | 2017-05-15 22:27 | NUR ---
SHIFT ASSESSMENT COMPLETED. NIGHT MEDS GIVEN WITH NO PROBLEMS. PT RECIEVED 8 UNITS INSULIN PER SLIDING SCALE FOR [id number]. PT C/O PAIN 06/25. ADMINISTERED PRESCRIBED PRN PERCOCET PER ORDER. DENIES FURTHER NEEDS. AT BEDSIDE. WILL MONITOR. SIDE RAILS X 2. BED LOW. CALL LIGHT IN REACH.
[2017-05-16 04:00] VITALS: BP 107/68
--- NOTE | 2017-05-16 07:31 | NUR ---
SPOKE WITH EPIFANIO IN QUALITY CONTROL TESTER AT THIS TIME. SHE SAID PROCEDURE WAS SCHEDULED FOR AROUND ONE O'CLOCK. NOTIFIED PT AND HIS OF THIS INFORMATION. BOTH VERBALIZED UNDERSTANDING.
--- NOTE | 2017-05-16 07:40 | NUR ---
SPOKE WITH DR NICHOLAS AT THIS TIME REGARDING NEEDS FOR PRE OP ORDERS.
[2017-05-16 08:06] VITALS: BP 182/82
[2017-05-16 08:13] LABS: BASOPHILS 0.3 % (0-2); EOSINOPHILS 1.7 % (0-7); HEMATOCRIT 29.6 % (42.0-54.0); HEMOGLOBIN 9.9 g/dL (13.5-17.5); IMMATURE GRANULOCYTES 3.1 % (0-5); LYMPHOCYTES 18.8 % (15-50); MCH 29.8 pg (26.0-34.0); MCHC 33.4 g/dL (31.0-37.0); MCV 89.2 fL (80.0-100.0); MEAN PLATELET VOLUME 8.9 fL (7.4-10.4); NEUTROPHILS 69.1 % (40-80); PLATELET COUNT 217 10x3/uL (130-400); RBC 3.32 10x6/uL (4.20-6.10); WBC 7.5 10x3/uL (4.8-10.8)
[2017-05-16 08:30] LABS: ALBUMIN 2.1 g/dL (3.4-5.0); ALKALINE PHOSPHATASE 85 U/L (46-116); ALT (SGPT) 22 U/L (10-68); BILIRUBIN - TOTAL 0.57 mg/dL (0.2-1.3); CALC OSMOLALITY 279 mosm/kg (275-300); CALCIUM 8.4 mg/dL (8.5-10.1); CARBON DIOXIDE 29.8 mmol/L (21.0-32.0); CHLORIDE - SERUM 102 mmol/L (98-107); CREATININE - SERUM 0.9 mg/dL (0.6-1.3); GLUCOSE 188 mg/dL (74-106); POTASSIUM - SERUM 3.7 mmol/L (3.5-5.1); PROTEIN - SERUM 5.8 g/dL (6.4-8.2); SODIUM 138 mmol/L (136-145); UREA NITROGEN 10 mg/dL (7-18); eGFR NON AFRICAN AMERICAN 89 mL/min (90-120)
--- NOTE | 2017-05-16 08:59 | NUR ---
SCHEDULED SOTALOL ADMINISTERED WITH A SMALL SIP OF WATER AT THIS TIME.
--- NOTE | 2017-05-16 11:03 | NUR ---
PRN PERCOCET ADMINISTERED WITH A SMALL SIP OF WATER. REMAINS AT BEDSIDE. CALL LIGHT IN REACH. WILL CONTINUE WITH PLAN OF CARE.
[2017-05-16 11:57] VITALS: BP 125/77
--- NOTE | 2017-05-16 12:20 | NUR ---
NO PRE OPERATIVE MEDICATIONS TO GIVE PER STEPHON IN CLAMPER. ONLY SUPPOSED TO HANG A BAG OF FLUID.
--- NOTE | 2017-05-16 12:55 | NUR ---
TAKEN FOR PROCEDURE AT THIS TIME. WILL MONITOR PT WHEN HE RETURNS TO ROOM.
--- NOTE | 2017-05-16 13:30 | NUR ---
REPORT RECEIVED FROM ROD RN IN BUSINESS ATTORNEY AT THIS TIME. WILL MONITOR PT WHEN HE RETURNS TO ROOM 2231.
[2017-05-16 13:40] VITALS: BP 142/68
--- NOTE | 2017-05-16 13:48 | NUR ---
PRN TYLENOL ADMINISTERED WITHOUT DIFFICULTY FOR HEADACHE PAIN. SWALLOWED WATER AND MEDICATIONS WITHOUT DIFFICULTY.
[2017-05-16 15:02] VITALS: BP 165/791
--- NOTE | 2017-05-16 19:00 | NUR ---
REPORT RECEIVED AND CARE OF PT ASSUMED. PT LYING IN SEMI BLANDON'S POSITION WATCHING TV WITH . LEFT PICC LINE SALINE LOCKED. DRESSING ON RIGHT SHOULDER CLEAN AND DRY. TELEMETRY REPORTS SR / PACED AT 60. WILL MONITOR CLOSELY FOR NEEDS. CALL LIGHT WITHIN REACH.
[2017-05-16 20:00] VITALS: BP 159/73
--- NOTE | 2017-05-16 22:17 | NUR ---
HS MEDICATIONS GIVEN. FSBS 162 THIS CHECK REQUIRING COVERAGE WITH 8 UNITS OF HUMALOG PER SLIDING SCALE. WILL CONTINUE TO MONITOR FOR NEEDS. IS AT BEDSIDE.
[2017-05-17] VITALS: BP 165/69
--- NOTE | 2017-05-17 00:59 | NUR ---
GAVE PERCOCET 10 PO PER PT REQUEST FOR PAIN IN RIGHT SHOULDER. WILL MONIOTOR FOR EFFECTIVENESS. CALL LIGHT WITHIN REACH.
[2017-05-17 04:00] VITALS: BP 147/66
--- NOTE | 2017-05-17 04:05 | NUR ---
BLOOD DRAWN FOR AM LABS AND BLOOD CULTURES...1 SET FROM PICC LINE AND 1 SET DRAWN BY SOLAR ENERGY SYSTEM INSTALLER HELPER FROM RIGHT ARM VEIN.
--- NOTE | 2017-05-17 06:39 | NUR ---
BLOOD SUGAR 131 THIS AM REQUIRING NO COVERAGE PER SLIDING SCALE.
--- NOTE | 2017-05-17 07:20 | NUR ---
PATIENT RECEIVED ALERT IN LOW BLANDON POSITION. NO SIGNS OF DISTRESS NOTED. DENIES NEEDS. RATES PAIN 5/10. SIDE RAILS UP X2. BED IN LOW POSITION. CALL LIGHT IN REACH.
[2017-05-17 08:05] VITALS: BP 177/67
--- NOTE | 2017-05-17 08:48 | NUR ---
PATIENT SITTING UP IN CHAIR AT BEDSIDE. NO SIGNS OF DISTRESS NOTED. SCHEDULED MEDICATION ADMINISTERED. DENIES NEEDS. CALL LIGHT IN REACH.
--- NOTE | 2017-05-17 10:25 | NUR ---
SITTING UP ON SIDE OF BED ALERT. BILATERAL SHEKHAR HOSE REMOVED. SKIN TO BILATERAL LOWER LEGS WNL. DENIES NEEDS. BED IN LOW POSITION. CALL LIGHT IN REACH.
[2017-05-17 10:26] LABS: BASOPHILS 0.1 % (0-2); EOSINOPHILS 1.1 % (0-7); HEMATOCRIT 29.3 % (42.0-54.0); HEMOGLOBIN 9.9 g/dL (13.5-17.5); IMMATURE GRANULOCYTES 1.3 % (0-5); LYMPHOCYTES 14.2 % (15-50); MCH 30.1 pg (26.0-34.0); MCHC 33.8 g/dL (31.0-37.0); MCV 89.1 fL (80.0-100.0); MEAN PLATELET VOLUME 8.4 fL (7.4-10.4); NEUTROPHILS 78.3 % (40-80); PLATELET COUNT 247 10x3/uL (130-400); RBC 3.29 10x6/uL (4.20-6.10); RDW 14.6 % (11.5-14.5); WBC 7.5 10x3/uL (4.8-10.8)
[2017-05-17 10:39] LABS: ALBUMIN 2.1 g/dL (3.4-5.0); ALKALINE PHOSPHATASE 78 U/L (46-116); ALT (SGPT) 20 U/L (10-68); CALC OSMOLALITY 285 mosm/kg (275-300); CALCIUM 8.3 mg/dL (8.5-10.1); CARBON DIOXIDE 29.3 mmol/L (21.0-32.0); CHLORIDE - SERUM 103 mmol/L (98-107); CREATININE - SERUM 0.9 mg/dL (0.6-1.3); POTASSIUM - SERUM 3.7 mmol/L (3.5-5.1); PROTEIN - SERUM 5.8 g/dL (6.4-8.2); SODIUM 140 mmol/L (136-145); UREA NITROGEN 11 mg/dL (7-18); eGFR NON AFRICAN AMERICAN 89 mL/min (90-120)
[2017-05-17 10:40] LABS: GLUCOSE 238 mg/dL (74-106)
--- NOTE | 2017-05-17 11:11 | NUR ---
ALERT IN BED. ACCU CHECK 227. INSULIN PER SLIDING SCALE. DENIES NEEDS. BED IN LOW POSITION. CALL LIGHT IN REACH.
[2017-05-17 12:28] VITALS: BP 168/69
--- NOTE | 2017-05-17 14:35 | NUR ---
PATIENT SITTING UP ON SIDE OF BED ALERT. NO SIGNS OF DISTRESS NOTED. BED IN LOW POSITION. CALL LIGHT IN REACH.
--- NOTE | 2017-05-17 15:03 | NUR ---
NUTRITION F/U CHART REVIEWED, PT VISIT. PT TOLERATING ADA DIET, ~50% INTAKE RECENT MEALS. WILL CONTINUE TO PROVIDE DIET, MONITOR INTAKE. RD FOLLOWING
[2017-05-17 16:00] VITALS: BP 140/67
--- NOTE | 2017-05-17 16:09 | NUR ---
ACCU CHECK 184. INSULIN PER SLIDING SCALE. RATES PAIN /. DENIES NEEDS. SIDE RAILS UP X2. BED IN LOW POSITION. CALL LIGHT IN REACH.
[2017-05-17] MEDS ORDERED: OXYCONTIN10 MG PO (17:14)
--- NOTE | 2017-05-17 17:15 | NUR ---
SITTING UP ON SIDE OF BED EATING DINNER. TOLERATING WELL. DENIES NEEDS. BED IN LOW POSITION. CALL LIGHT IN REACH.
--- NOTE | 2017-05-17 17:18 | NUR ---
CM REASSESSMENT NOTE: PATIENT IS DISCHARGING HOME IN AM WITH [employer]. [facility] WILL DELIVER IN AM TO PATIENTS HOME WITH A NURSE TO INSTRUCT PATIENTS . PATIENT HAS SIGNED THE IMM. HAS BEEN NOTIFIED BY [facility]. DR. MCKENZIE WAS FINE WITH NO HOME HEALTH WAS [facility]. COST IS 519.12 INCLUDING ANAPHYLACTIC KIT AND SUPPLIES PER [facility]. [facility]- [phone]
[2017-05-17] MEDS ORDERED: CEFAZOLIN2 GM/50 ML IV (17:22)
--- NOTE | 2017-05-17 19:00 | NUR ---
REPORT RECEIVED AND CARE OF PT ASSUMED. PT LYING IN SUPINE POSITION WATCHING TV. LEFT PICC SALINE LOCKED. TELEMETRY IN PLACE AND READING PACED AT THIS ASSESSMENT. WILL MONITOE KAREN FOR NEEDS.
--- NOTE | 2017-05-17 19:32 | NUR ---
GAVE PERCOCET 10 PO PER PT REQUEST FOR PAIN, PER PRN ORDER.
[2017-05-17 20:00] VITALS: BP 159/82
--- NOTE | 2017-05-17 21:43 | NUR ---
HS MEDICATIONS GIVEN. FSBS 170 THIS CHECK REQUIRING COVERAGE WITH 8 UNITS OF HUMALOG PER SLIDING SCALE.
[2017-05-18] VITALS: BP 152/61
--- NOTE | 2017-05-18 00:45 | NUR ---
GAVE PERCOCET 10 PO PER PRN ORDER, PER PT REQUEST FOR PAIN. WILL MONITOR FOR EFFECTIVENESS. IS AT BEDSIDE.
[2017-05-18 04:09] VITALS: BP 155/65
[2017-05-18 04:56] LABS: BASOPHILS 0.1 % (0-2); EOSINOPHILS 1.6 % (0-7); HEMATOCRIT 25.6 % (42.0-54.0); HEMOGLOBIN 8.4 g/dL (13.5-17.5); LYMPHOCYTES 23.9 % (15-50); MCH 29.4 pg (26.0-34.0); MCHC 32.8 g/dL (31.0-37.0); MCV 89.5 fL (80.0-100.0); MEAN PLATELET VOLUME 8.5 fL (7.4-10.4); MONOCYTES 6.7 % (2-11); NEUTROPHILS 66.7 % (40-80); PLATELET COUNT 245 10x3/uL (130-400); RBC 2.86 10x6/uL (4.20-6.10); RDW 14.7 % (11.5-14.5); WBC 6.7 10x3/uL (4.8-10.8)
[2017-05-18 05:24] LABS: ALKALINE PHOSPHATASE 71 U/L (46-116); ALT (SGPT) 15 U/L (10-68); BILIRUBIN - TOTAL 0.33 mg/dL (0.2-1.3); CALC OSMOLALITY 279 mosm/kg (275-300); CALCIUM 7.7 mg/dL (8.5-10.1); CARBON DIOXIDE 30.5 mmol/L (21.0-32.0); CHLORIDE - SERUM 103 mmol/L (98-107); POTASSIUM - SERUM 3.5 mmol/L (3.5-5.1); SODIUM 140 mmol/L (136-145); UREA NITROGEN 10 mg/dL (7-18); eGFR NON AFRICAN AMERICAN 78 mL/min (90-120)
[2017-05-18 05:25] LABS: GLUCOSE 131 mg/dL (74-106)
--- NOTE | 2017-05-18 06:31 | NUR ---
PT RESTED WELL OVERNIGHT. GAVE PERCOCET 10 AT 0550 FOR PAIN PER PRN ORDER. BLOOD SUGAR 131 THIS AM REQUIRING NO COVERAGE PER SLIDING SCALE. POTASSIUM LEVEL AT AM LABS 3.5 REQUIRING COVERAGE WITH 40 MEQ PO POTASSIUM PER ELECTROLYTE...PT DRANK MIXED WITH ORANGE JUICE. CONTINUE PLAN OF CARE.
--- NOTE | 2017-05-18 07:15 | NUR ---
PATIENT RECEIVED ALERT IN LOW BLANDON POSITION. NO SIGNS OF DISTRESS NOTED. PRESENT. DENIES NEEDS. ANTICIPATING D/C HOME.
--- NOTE | 2017-05-18 07:40 | NUR ---
DRESSING TO LEFT PICC CHANGED USING STERLIE TECHNIQUE AND PROVIDED DRESSING CHANGE KIT. NO REDNESS OR INFLAMMATION NOTED TO SITE. WELL TOLERATED. SWAB CAPS IN PLACE.
--- NOTE | 2017-05-18 07:45 | NUR ---
D/C TEACHING PROVIDED TO AND PATIENT. STATES UNDERSTANDING. QUESTIONS ANSWERED. PRESCRIPTION FOR NARCOTIC GIVEN WELL. TRANSFERRED DOWNSTAIRS VIA WHEELCHAIR WITH STAFF
--- NOTE | 2017-05-22 12:06 | OP ---
PATIENT NAME: MARTA LOTT MEDICAL RECORD: [id number] :47 LOCATION:D.MS [id number] ADMISSION DATE:05/09/17 SURGEON: BIENVENIDO RING MD DATE OF OPERATION: 05/09/2017 PREOPERATIVE DIAGNOSIS: Septic arthritis of the right shoulder. POSTOPERATIVE DIAGNOSIS: Septic arthritis of the right shoulder. PROCEDURES: Arthroscopic I&D of the right shoulder to include the glenohumeral space as well as the subacromial space with purulence found on each. No cultures were taken up. OPERATIVE SUMMARY IN DETAIL: After obtaining the appropriate preoperative orthopedic surgery consent as well as anesthetic consultation, evaluation and clearance, the patient was taken to the operating room and placed on the table in supine position. After adequate general laryngeal mask was administered, the patient was placed in left lateral decubitus position. All pressure points were padded to include down leg peroneal pad as well as axillary roll. The patient was held firmly to the operating table using the vacuum pack suction system. Right upper extremity and shoulder were then prepped and draped in routine sterile fashion. The arm was held in the Arthrex traction boom at 30 degrees of forward flexion, 30 degrees of abduction, and 10 pounds of traction laterally. Arthroscopy was established in the glenohumeral joint from a posterior portal. Anterior portal was established in the anterior safe interval. Arthroscopy was established in the glenohumeral joint from a posterior portal. Before establishing the anterior portal, a syringe was hooked up to the arthroscopy system and mary pus was aspirated from the glenohumeral joint. The shoulder was then insufflated and the anterior portal was established under direct arthroscopic visualization. Copious amount of phlegmon was noted. Resector was then utilized to debride anteriorly, superiorly and posteriorly. The biceps tendon was then in very poor condition with infectious etiology and when it was cleaned off entirely, it was nearly completely in two and it was therefore tenotomized. Further cleaning out, the resector was carried out to the rotator cuff junction, which had some undersurface tearing. Attention was then turned to the subacromial space. While on the subacromial space, again more phlegmon was found, debridement was carried out on the subacromial space to the acromioclavicular joint. There was no evidence of abscess seen in the acromioclavicular joint region; however, there was generalized infection in the subacromial space. After approximately 60 liters of fluid had been used for irrigation and debridement of both the shoulder and the subacromial space, the case was finished. Arthroscopy portals were closed in routine interrupted fashion using 4-0 Prolene. Sterile dressings were placed. The patient was awakened and taken to recovery in stable condition. All final needle and sponge counts were correct. TRANSINT:[id number] Voice Confirmation ID: [id number] DOCUMENT ID: [id number] OPERATIVE REPORT [id number] MARTA LOTT MD, BIENVENIDO OBREGON at 1206 CC: [id number] DICTATION DATE: 05/10/171599 GLASS LOADING EQUIPMENT TENDER: 05/10/172252 DIS IN 05/18/17 [address] [place] [address]
== END 2017-05-18 07:45 | disposition home or self-care (01) | DRG 871 ==
LOC: D.ER 04:39 → D.MS 07:28
PROVIDERS: Emergency Medicine; Family Medicine; Orthopaedic Surgery; ADMIT Family Medicine
PROC: 0R9J3ZZ Drainage of Right Shoulder Joint, Percutaneous Approach (ICD-10-PCS; principal; 2017-05-09)
PROC: 02HV33Z Insertion of Infusion Device into Superior Vena Cava, Percutaneous Approach (ICD-10-PCS; 2017-05-15)
PROC: B548ZZA Ultrasonography of Superior Vena Cava, Guidance (ICD-10-PCS; 2017-05-15)
DX: A41.01 Sepsis due to Methicillin susceptible Staphylococcus aureus (principal); I33.0 Acute and subacute infective endocarditis; M00.9 Pyogenic arthritis, unspecified; N17.9 Acute kidney failure, unspecified; M75.01 Adhesive capsulitis of right shoulder; E11.65 Type 2 diabetes mellitus with hyperglycemia; I10 Essential (primary) hypertension; Z95.810 Presence of automatic (implantable) cardiac defibrillator; N40.0 Benign prostatic hyperplasia without lower urinary tract symptoms; I49.9 Cardiac arrhythmia, unspecified; I25.10 Atherosclerotic heart disease of native coronary artery without angina pectoris; Z95.5 Presence of coronary angioplasty implant and graft; E83.42 Hypomagnesemia; E86.0 Dehydration; D64.9 Anemia, unspecified; B95.61 Methicillin susceptible Staphylococcus aureus infection as the cause of diseases classified elsewhere

== ENCOUNTER 2017-05-30 09:03 | Outpatient (CLI) | payer MEDICARE | END 2017-05-30 12:45 | disposition home or self-care (01) | LOC: D.OPS 09:03 | DX: T82.868A Thrombosis due to vascular prosthetic devices, implants and grafts, initial encounter (principal) ==

== ENCOUNTER 2017-06-27 14:39 | Outpatient (CLI) | payer MEDICARE ==
[~2017-06-27 14:39] MED LIST changes: +CEFAZOLIN2 GM/50 ML IV; +OXYCONTIN10 MG PO
[2017-06-27 15:48] VITALS: BP 144/84; BMI 31.7
== END 2017-06-27 15:55 | disposition home or self-care (01) ==
LOC: D.OPS 14:39
DX: I33.0 Acute and subacute infective endocarditis (principal)

== ENCOUNTER → 2017-07-04 11:12 | Outpatient (CLI) | payer MEDICARE ==
--- NOTE | ~2017-07-04 | HEMODYNAMI ---
PATIENT:MARTA LOTT MEDICAL RECORD: [id number] : 47 LOCATION:D.CAT ADMISSION DATE: 07/04/17 Generatedon:07/04/201714:06 Patient name: MARTA LOTT Patient #: [id number] SSN: : 1945 Date of study: 07/04/2017 Page: Of Hemodynamic Procedure Report Patient Data Patient Demographics Procedure consent was obtained First Name: MARTA Gender: Male Last Name: OREN : 1945 [facility] Initial: C Age: 72 year(s) Patient #: [id number] Race: Unknown Additional ID: [id number] Contact details [address]: [address] [place] [address] State: [place] City: [place] Zip code: [address] Past Medical History Allergies Allergen Reaction Date Comments Reported Other allergy 05/16/2017 Amiodarone Admission Admission Data Admission Date: 07/04/2017 Admission Time: 11:12 Procedure Procedure Types Cath Procedure Diagnostic Procedure PAULINA Procedure Description Procedure Date Procedure Date: 07/04/2017 Procedure Start Time: 13:44 Procedure End Time: 13:53 Procedure Staff Name Function Baldemar Velarde MD Performing Physician Ld Lamb RN Nurse Mignon May RT Monitor Procedure Data Cath Procedure Estimated blood loss: 0 ml Procedure Medications Medication Administration Route Dosage Oxygen NC 6 l/min Refer to Anesthesia Notes for Sedation Medications Hemodynamics Rest Heart Rate: 64 (bpm) Snapshots Pre Cath Intra NCS Post Cath Vital Signs Time Heart Resp SPO2 etCO2 NIBP (mmHg) Rhythm Pain Sedation Rate (ipm) (%) (mmHg) Status Level (bpm) 13:30:00 63 17 99 162/82(136) NSR 0 (11) 10(A) , No pain 13:34:31 65 17 99 153/87(136) NSR 0 (11) 10(A) , No pain 13:42:59 66 18 98 19.6 159/78(115) NSR 0 (11) 10(A) , No pain 13:55:04 69 20 100 13.6 105/61(69) NSR 0 (11) 10(A) , No pain 14:02:14 63 19 100 26.4 93/70(90) NSR 0 (11) 10(A) , No pain Medications Time Medication Route Dose Verified Delivered Reason Notes Effectiven ess by by 13:34:06 Oxygen NC 6 Baldemar Jaffe Per l/min St. Atif Lamb RN physician 13:34:34 Refer to Baldemar Jaffe Anesthesia St. Atif Lamb RN Notes for MD Sedation Medications Procedure Log Time Note 13:10:21 Mignon May RT(R) sent for patient. Start room use. 13:28:19 Diagnostic Cath status Elective 13:28:22 Time tracking: Regular hours 13:28:27 Plan of Care:Hemodynamics will remain stable., Cardiac rhythm will remain stable., Comfort level will be maintained., Respiratory function will remain adequate., Patient/ family verbilizes understanding of procedure., Procedure tolerated without complication., Recovers from procedure without complications.. 13:28:34 Patient received from Pre/Post Procedure Room to [facility] Alert and oriented. Tansferred to table in Supine position. 13:28:35 Warm blankets applied, and donnie hugger turned on for patient comfort. 13:28:36 Correct patient and procedure confirmed by team. 13:28:37 Signed procedure consent form obtained from patient. 13:28:38 ECG and BP/O2 sat monitors applied to patient. 13:28:39 Vital chart was started 13:28:40 Baseline sample Acquired. 13:28:45 Rhythm: sinus rhythm 13:28:48 Full Disclosure recording started 13:29:13 H&P Date Dictated: 06/17/2017 Within 30 days and on chart., H&P Addendum completed by physician on day of procedure. (MUST COMPLETE FOR ALL OUTPATIENTS). 13:29:14 Pre-procedure instructions explained to patient. 13:29:16 Family in waiting room. 13:29:18 Patient NPO since Midnight. 13:29:32 Is the patient allergic to Iodine/contrast media? No. 13:29:34 Is patient on blood thinner?Yes 13:29:42 Patient diabetic? Yes. 13:29:44 If diabetic: On Metformin? Yes 13:29:46 If on Metformin: Last Dose? 07/04/2017 13:29:54 Snore? Yes 13:30:11 ACC The patient was administered the following blood thiners within the last 24 hours: ACCPlavix 13:30:13 Sleep apnea? No 13:30:19 Dentures? No ? 13:30:30 IV patent on arrival in right hand with 0.9% NaCl at O. 13:30:37 Lab results completed and on chart. 13:30:40 Alarms reviewed by José Miguel Smith 13:30:43 Physician paged 13:34:06 Oxygen 6 l/min NC was administered by Ld Lamb RN; Per physician; 13:34:34 Refer to Anesthesia Notes for Sedation Medications was administered by Ld Lamb RN; ; 13:41:34 Mani Card Puncher present for PAULINA. 13:43:24 Elisa present and monitoring patient for TIVA. 13:44:34 Physician arrived 13:44:34 --------ALL STOP TIME OUT------ 13:44:35 Final Timeout: patient, procedure, and site verified with staff and physician. All members of the team are in agreement. 13:44:43 Sedation plan: TIVA Propofol 13:45:13 PAULINA started. 13:52:25 PAULINA completed. 13:52:36 Procedure ended.(Physican Out) 13:52:58 Post Procedure Pulses reassessed and unchanged 13:53:03 Post procedure rhythm: unchanged. 13:53:06 Estimated blood loss: 0 ml 13:53:08 Post procedure instruction explained to patient.Patient verbalizes understanding. 13:53:17 Procedure and supply charges have been captured, reviewed, submitted and are correct. 13:53:39 Vital chart was stopped 13:53:40 See physician's report for complete and final results. 13:53:42 Report given to Pre/Post Procedure Room. 13:53:45 Patient transfered to Pre/Post Procedure Room with Stretcher. 13:53:48 Procedure ended. 13:53:48 Full Disclosure recording stopped 13:53:51 End room use (Document Last) 13:57:09 Post-procedure physical assessment completed. ASA score P 4 - A patient with severe systemic disease that is a constant threat to life as per Baldemar Velarde MD. Signature Audit [facility] Time Signature Unsigned Intra-Procedure 07/04/2017 Mignon May 2:06:41 PM RT(R) Signatures Monitor : Mignon May Signature : RT Date : Time : [id number] [place] [address]
[~2017-07-04 11:12] MED LIST changes: +ANCEF 1 GM/D5W 51 G1 IV; +Ancef 2 GM/Dextrose IV; +COZAAR50 MG PO; +CRESTOR20 MG PO; +HCTZ25 MG PO; +RIFADIN300 MG PO
[2017-07-04 12:10] VITALS: BP 131/94; BMI 30.7
[2017-07-04 12:21] LABS: HEMATOCRIT 32.3 % (42.0-54.0); HEMOGLOBIN 10.4 g/dL (13.5-17.5); MCH 29.1 pg (26.0-34.0); MCHC 32.2 g/dL (31.0-37.0); MCV 90.2 fL (80.0-100.0); MEAN PLATELET VOLUME 8.8 fL (7.4-10.4); RBC 3.58 10x6/uL (4.20-6.10); RDW 15.7 % (11.5-14.5); WBC 4.4 10x3/uL (4.8-10.8)
[2017-07-04 12:38] LABS: CALC OSMOLALITY 283 mosm/kg (275-300); CALCIUM 9.3 mg/dL (8.5-10.1); CARBON DIOXIDE 27.6 mmol/L (21.0-32.0); CHLORIDE - SERUM 102 mmol/L (98-107); CREATININE - SERUM 0.8 mg/dL (0.6-1.3); GLUCOSE 158 mg/dL (74-106); SODIUM 139 mmol/L (136-145); UREA NITROGEN 21 mg/dL (7-18); eGFR NON AFRICAN AMERICAN > 90 mL/min (90-120)
--- NOTE | 2017-07-04 14:31 | NUR ---
1415 PT IS ALERT, DENIES ANY C/O. IV PATENT. BP 146/83, HR 65. AT BEDSIDE, PT INSTRUCTED TO CALL FOR NEEDS. CALL LIGHT IN REACH.
--- NOTE | 2017-07-04 14:33 | NUR ---
1430 PO FLUIDS AND FOOD SERVED. PT DENIES ANY C/O. K
--- NOTE | 2017-07-04 14:41 | NUR ---
1440 KATINA GUIDO RN HERE WITH PT REMOVING PICC LINE.
--- NOTE | 2017-07-04 14:43 | NUR ---
Patient with left upper arm midline catheter. Will remove per order. Midline removed with cath intact at 12 cm. Pressure to site then tegaderm dressing to site. No signs of redness or drainage note Emely Odell RN
--- NOTE | 2017-07-04 15:00 | NUR ---
1500 PT HAS TOLERATED PO FLUIDS AND FOOD WITH NO C/O NAUSEA. IV DC'D WITH CATH INTACT. PT DRESSING FOR DC TO HOME.
--- NOTE | 2017-07-04 15:40 | NUR ---
1510 PT HAS AMBULTED TO THE BATHROOM AND VOIDED QS. DC INSTRUCTIONS HAVE BEEN REVIEWED WITH PT AND WHO VERBALIZE UNDERSTANDING. PT ESCORTED TO PRIVATE AUTO VIA WC BY NURSE WITH DRIVING HIM HOME. PT DENIES ANY C/O UPON DC.
--- NOTE | 2017-07-09 12:32 | TEE ---
PATIENT:MARTA LOTT MEDICAL RECORD: [id number] LOCATION:D[facility] AGE OF PATIENT: 72 ADMISSION DATE: 07/04/17 SEX: M REFERRING PHYSICIAN: INTERPRETING PHYSICIAN: VIVIANA RIVERA MD TRANSESOPHAGEAL ECHOCARDIOGRAM PAULINA CHARGE Y INDICATIONS: REASSESS ENDOCARDITIS POST TREATMENT PREMEDICATIONS: PATIENT'S RESPONSE PROCEDURE DOPPLER MEASUREMENTS: LVIT LA PA RA LVOT RVOT Asc. Ao AV Gradient Peak AV Mean AV Area MV Gradient Peak MV Mean MV Area INTERPRETATION: Doppler: 2-D: COLOR FLOW DOPPLER NORMAL SALINE STUDY: MISCELLANOUS: DIAGNOSIS: PLAN: Clinical Research Director:3 Dr. Velarde Commercial Art Instructor: Andres JIMENEZ COMMENTS: DATE OF SERVICE: 07/04/2017 TRANSESOPHAGEAL NOTE DESCRIPTION OF PROCEDURE: General sedation via TIVA via anesthesia. Transesophageal Omniplane probe was placed in the distal esophagus and proximal stomach without difficulty. FINDINGS: LV internal dimensions are normal. Wall motion is normal. EF is TRANSESOPHAGEAL ECHOCARDIOGRAM REPORT [id number] MARTA LOTT greater than 55%. Aortic valve is tricuspid valve with good excursion. Left atrial dimensions appear normal. Mitral valve appears normal with no prolapse. Left atrial appendage is well visualized with good contractility. Right-sided chambers appear grossly normal. The ICD lead in the right atrium is well visualized. Previous fibrinous strands appear to be resolved. These were seen in multiple views on the prior transesophageal. TRANSINT:[id number] Voice Confirmation ID: [id number] DOCUMENT ID: [id number] at 1232 CC: [id number] DICTATION DATE: 07/04/17 1413 PUMPING STATION ENGINEER: 07/05/17 0026 DEP CLI 07/04/17 [facility] [address] [place] [address]
== END | disposition home or self-care (01) ==
LOC: D.CATH 11:12
PROVIDERS: Internal Medicine Interventional Cardiology
DX: I38 Endocarditis, valve unspecified (principal); Z01.812 Encounter for preprocedural laboratory examination; Z95.810 Presence of automatic (implantable) cardiac defibrillator

== ENCOUNTER 2017-07-05 23:50 | Inpatient (IN) | payer MEDICARE ==
[~2017-07-05 23:50] MED LIST changes: -ANCEF 1 GM/D5W 51 G1 IV; -Ancef 2 GM/Dextrose IV; -COZAAR50 MG PO; -CRESTOR20 MG PO; -HCTZ25 MG PO; -RIFADIN300 MG PO
[2017-07-06 00:44] LABS: HEMATOCRIT 29.5 % (42.0-54.0); HEMOGLOBIN 9.8 g/dL (13.5-17.5); LYMPHOCYTES 4.5 % (15-50); MCH 29.3 pg (26.0-34.0); MCHC 33.2 g/dL (31.0-37.0); MEAN PLATELET VOLUME 8.1 fL (7.4-10.4); NEUTROPHILS 87.7 % (40-80); PLATELET COUNT 177 10x3/uL (130-400); RBC 3.35 10x6/uL (4.20-6.10); RDW 15.6 % (11.5-14.5)
[2017-07-06 00:46] LABS: MCV 88.1 fL (80.0-100.0); WBC 8.5 10x3/uL (4.8-10.8)
[2017-07-06 01:03] LABS: ALBUMIN 3.4 g/dL (3.4-5.0); ANION GAP 16.8 mmol/L (8-16); BILIRUBIN - TOTAL 0.74 mg/dL (0.2-1.3); CALCIUM 8.6 mg/dL (8.5-10.1); CARBON DIOXIDE 22.2 mmol/L (21.0-32.0); PROTEIN - SERUM 6.9 g/dL (6.4-8.2)
[2017-07-06 01:04] LABS: CREATININE - SERUM 1.2 mg/dL (0.6-1.3)
[2017-07-06 01:15] LABS: APPEARANCE CLEAR (CLEAR); BILIRUBIN NEGATIVE (NEGATIVE); COLOR YELLOW (YELLOW); GLUCOSE NEGATIVE (NEGATIVE); KETONE NEGATIVE (NEGATIVE); NITRITE NEGATIVE (NEGATIVE); PROTEIN NEGATIVE (NEGATIVE); UROBILINOGEN NORMAL (NORMAL)
[2017-07-06 04:10] LABS: ERYTHROCYTE SEDIMENTATION RATE 15 mm/hr (0-20)
--- NOTE | 2017-07-06 04:20 | NUR ---
PATIENT RECIEVED FROM ER VIA STRETCHER. PATIENT IS ABLE TO MOVE ON HIS OWN BUT IS WEARK. PIV TO RIGHT AC INFUSING NS@125.
[2017-07-06] MEDS ORDERED: CRESTOR20 MG PO (04:26)
[2017-07-06 05:00] VITALS: BP 106/60; BMI 31.1
--- NOTE | 2017-07-06 05:22 | NUR ---
RN NOTE: ADMISSION ASSESSMENT COMPLETE.
--- NOTE | 2017-07-06 07:15 | NUR ---
REPORT RECEIVED FROM RN OPERATING ROOM NURSE. CALL LIGHT IN REACH.
[2017-07-06 08:36] VITALS: BP 124/57
--- NOTE | 2017-07-06 09:30 | NUR ---
NO NEEDS VOICED AT THIS TIME. CALL LIGHT IN REACH.
[2017-07-06 10:15] VITALS: BMI 31.1
--- NOTE | 2017-07-06 11:12 | NUR ---
ASSESSMENT COMPLETED. AM MEDS ADMINISTERED. OXYCONTIN PO FOR PAIN OF 8. ONLY WANTS HALF OF PILL. OTHER HALF WASTED WITH ANGELA LINDQUIST. MIRALAX ADMINISTERED. BLOOD SUGAR TAKEN PER 'S REQUEST WHICH WAS 228. CALL LIGHT IN REACH. WILL CONTINUE WITH PLAN OF CARE.
--- NOTE | 2017-07-06 12:38 | NUR ---
TYLENOL PO FOR HEADACHE. FSBS 193. INSULIN NOT ON FLOOR YET AT THIS TIME. SAMEERA PO. CALL LIGHT IN REACH.
[2017-07-06 13:43] VITALS: BP 116/58
--- NOTE | 2017-07-06 14:37 | NUR ---
RESTING WITH EYES CLOSED. RESP EVEN AND UNLABORED. CALL LIGHT IN REACH. AT BEDSIDE.
--- NOTE | 2017-07-06 15:40 | NUR ---
DE. FERNANDEZ IN ROOM TO SEE PATIENT.
--- NOTE | 2017-07-06 17:12 | NUR ---
REFUSED METFORMIN D/T CT SCAN WITH CONTRAST. FSBS 219. 4 UNITS HUMALOG SUBQ. BP 92/48, WILL DO MANUALLY.
[2017-07-06 17:19] VITALS: BP 92/48
--- NOTE | 2017-07-06 17:50 | NUR ---
TO RADIOLOGY VIA .
--- NOTE | 2017-07-06 18:18 | NUR ---
BACK FROM CT SCAN AND XRAY. NO CHANGES IN INITIAL ASSESSMENT. CALL LIGHT IN REACH. WANTS SCDs OFF AT THIS TIME. WILL CONTINUE WITH PLAN OF CARE.
--- NOTE | 2017-07-06 18:40 | NUR ---
PATIENT IN BED WITH IV INTACT. NO COMPLAINTS AT THIS TIME. FAMILY AT BEDSIDE. CALL LIGHT WITHIN REACH.
[2017-07-06 20:40] VITALS: BP 103/56
--- NOTE | 2017-07-07 01:12 | NUR ---
RN NOTE: PT RESTING QUIETLY IN LOW BLANDON'S POSITION. IV IN RIGHT AC PATENT WITH NS INFUSING AT 125 ML / HR. SCD'S IN USE ON BLE. CONTACT ISOLATION PRECAUTIONS IN PLACE. WILL CONTINUE TO MONITOR FOR NEEDS.
[2017-07-07 01:22] VITALS: BP 111/54
[2017-07-07 04:08] VITALS: BP 110/55
[2017-07-07 04:57] LABS: BASOPHILS 0.1 % (0-2); EOSINOPHILS 0.9 % (0-7); HEMATOCRIT 25.6 % (42.0-54.0); HEMOGLOBIN 8.2 g/dL (13.5-17.5); IMMATURE GRANULOCYTES 0.1 % (0-5); LYMPHOCYTES 14.4 % (15-50); MCH 28.8 pg (26.0-34.0); MCV 89.8 fL (80.0-100.0); MEAN PLATELET VOLUME 9.2 fL (7.4-10.4); MONOCYTES 6.5 % (2-11); RBC 2.85 10x6/uL (4.20-6.10); RDW 16.1 % (11.5-14.5); WBC 8.5 10x3/uL (4.8-10.8)
[2017-07-07 05:01] LABS: PLATELET COUNT 131 10x3/uL (130-400)
[2017-07-07 05:24] LABS: ALBUMIN 2.6 g/dL (3.4-5.0); ALKALINE PHOSPHATASE 47 U/L (46-116); BILIRUBIN - TOTAL 0.57 mg/dL (0.2-1.3); CALC OSMOLALITY 285 mosm/kg (275-300); CALCIUM 8.1 mg/dL (8.5-10.1); CARBON DIOXIDE 26.1 mmol/L (21.0-32.0); CHLORIDE - SERUM 105 mmol/L (98-107); GLUCOSE 166 mg/dL (74-106); POTASSIUM - SERUM 3.5 mmol/L (3.5-5.1); PROTEIN - SERUM 5.7 g/dL (6.4-8.2); SODIUM 138 mmol/L (136-145); UREA NITROGEN 28 mg/dL (7-18)
[2017-07-07 05:32] LABS: ALT (SGPT) 12 U/L (10-68); CREATININE - SERUM 0.8 mg/dL (0.6-1.3); eGFR NON AFRICAN AMERICAN > 90 mL/min (90-120)
[2017-07-07 05:37] LABS: ERYTHROCYTE SEDIMENTATION RATE 23 mm/hr (0-20)
--- NOTE | 2017-07-07 07:01 | NUR ---
REPORT RECEIVED FROM MERRY GO ROUND OPERATOR NURSE. CALL LIGHT IN REACH.
[2017-07-07 08:25] VITALS: BP 108/60
--- NOTE | 2017-07-07 08:40 | NUR ---
ASSESSMENT COMPLETED. AM MEDS ADMINISTERED. SCDs OFF. CALL LIGHT IN REACH. WILL CONTINUE WITH PLAN OF CARE.
--- NOTE | 2017-07-07 10:50 | NUR ---
IN ROOM WATCHING TV WITH AT BEDSIDE. CALL LIGHT IN REACH.
--- NOTE | 2017-07-07 11:10 | NUR ---
IN ROOM WATCHING TV WITH AT BEDSIDE. CALL LIGHT IN REACH.
--- NOTE | 2017-07-07 12:15 | NUR ---
SAMEERA PO. 4 UNITS SUBQ TO RLQ.
--- NOTE | 2017-07-07 12:21 | NUR ---
RESTING QUIETLY IN BED. AT BEDSIDE. DENIES ANY NEEDS AT PRESENT.
[2017-07-07 12:25] VITALS: BP 101/56
--- NOTE | 2017-07-07 14:46 | NUR ---
NO NEEDS VOICED AT THIS TIME. IN ROOM. CALL LIGHT IN REACH.
[2017-07-07 16:36] VITALS: BP 106/58
--- NOTE | 2017-07-07 16:55 | NUR ---
IN ROOM AT THIS TIME. NO NEEDS VOICED AT THIS TIME.
--- NOTE | 2017-07-07 18:28 | NUR ---
NO CHANGES IN INITIAL ASSESSMENT. CALL LIGHT IN REACH. SCDs OFF AT THIS TIME. WILL CONTINUE WITH PLAN OF CARE.
[2017-07-07 20:00] VITALS: BP 138/68
--- NOTE | 2017-07-07 22:46 | NUR ---
IV IN LEFT WRIST LEAKING AND CATH KINKED. DC'D WITH TIP INTACT. RESITED TO LEFT FA. 22 GAUGE X2 STICK WITH GOOD BLOOD RETURN NOTED.
[2017-07-08 04:00] VITALS: BP 138/71
[2017-07-08 05:49] LABS: BASOPHILS 0.1 % (0-2); EOSINOPHILS 1.5 % (0-7); HEMATOCRIT 28.2 % (42.0-54.0); IMMATURE GRANULOCYTES 0.3 % (0-5); LYMPHOCYTES 19.4 % (15-50); MCH 28.8 pg (26.0-34.0); MCHC 31.9 g/dL (31.0-37.0); MCV 90.1 fL (80.0-100.0); MEAN PLATELET VOLUME 9.7 fL (7.4-10.4); MONOCYTES 6.6 % (2-11); NEUTROPHILS 72.1 % (40-80); RBC 3.13 10x6/uL (4.20-6.10); RDW 15.9 % (11.5-14.5); WBC 7.5 10x3/uL (4.8-10.8)
[2017-07-08 05:50] LABS: PLATELET COUNT 164 10x3/uL (130-400)
[2017-07-08 06:41] LABS: T4 THYROXIN - FREE 1.21 ng/dL (0.76-1.46); THYROID STIMULATING HORMONE 1.83 uIU/mL (0.36-3.74)
--- NOTE | 2017-07-08 07:30 | NUR ---
AWAKE AND ALERT THIS MORNING. REMAINS IN CONTACT ISOLATION TO RULE OUT MRSA. IV TO RIGHT AC PATENT. DENIES NEEDS AT THIS TIME. CALL LIGHT IN REACH, WILL CONTINUE WITH PLAN OF CARE.
[2017-07-08 08:31] VITALS: BP 136/74
--- NOTE | 2017-07-08 08:58 | NUR ---
SCHEDULED MEDICATIONS ADMINISTERED AT THIS TIME WITHOUT DIFFICULTY. IV TO RIGHT AC PATENT WITH NO S/S OF INFILTRATION PRESENT. REMAINS IN ISOLATION. DENIES PAIN AT THIS TIME. CALL LIGHT IN REACH, WILL CONTINUE WITH PLAN OF CARE.
[2017-07-08 09:33] LABS: ALKALINE PHOSPHATASE 58 U/L (46-116); BILIRUBIN - TOTAL 0.39 mg/dL (0.2-1.3); CALCIUM 8.7 mg/dL (8.5-10.1); CARBON DIOXIDE 25.8 mmol/L (21.0-32.0); CHLORIDE - SERUM 105 mmol/L (98-107); CREATININE - SERUM 0.8 mg/dL (0.6-1.3); GLUCOSE 176 mg/dL (74-106); PROTEIN - SERUM 6.1 g/dL (6.4-8.2); SODIUM 142 mmol/L (136-145); eGFR NON AFRICAN AMERICAN > 90 mL/min (90-120)
[2017-07-08 09:47] LABS: ALT (SGPT) 16 U/L (10-68); CALC OSMOLALITY 287 mosm/kg (275-300); UREA NITROGEN 15 mg/dL (7-18)
[2017-07-08 12:04] VITALS: BP 133/67
[2017-07-08 13:15] LABS: ERYTHROCYTE SEDIMENTATION RATE 33 mm/hr (0-20)
[2017-07-08 16:18] VITALS: BP 132/66
[2017-07-08 20:00] VITALS: BP 138/70
--- NOTE | 2017-07-08 20:00 | NUR ---
ASSESSMENT PER FLOWSHEET. IV PATENT RT AC WITH NS AT 15CC'S/HR SITE CLEAR. TELM. SHOWS SR WITH HR 62. SR UP X2 CALL LIGHT WITHIN REACH DENIES NEEDS.
--- NOTE | 2017-07-08 21:00 | NUR ---
MEDS GIVEN PER MAR. SKGN=481. HUMALOG INSULIN 4 UNITS GIVEN SUBC PER S/S TO LEFT UPPER ABDOMEN. SCD'S OFF PT UP AD CARMEN.
--- NOTE | 2017-07-08 22:00 | NUR ---
RESTING QUIETLY RESPIRATIONS WITH EASE AND UNLABORED.
--- NOTE | 2017-07-08 23:37 | NUR ---
RESTING QUIETLY DENIES ANY PAIN.
--- NOTE | 2017-07-09 00:08 | NUR ---
C/O RT SHOULDER PAIN OXYCONTIN TAB ONE PO GIVEN FOR PAIN CONTROL.
--- NOTE | 2017-07-09 02:30 | NUR ---
EYES CLOSED RESPIRATIONS WITH EASE AND UNLABORED.
[2017-07-09 04:00] VITALS: BP 137/73
--- NOTE | 2017-07-09 04:00 | NUR ---
AWAKE UP AD CARMEN TO BR VOIDS WELL DENIES PAIN.
--- NOTE | 2017-07-09 04:00 | NUR ---
SITTING UPRIGHT IN CHAIR AT BEDSIDE.
[2017-07-09 06:01] LABS: BASOPHILS 0.2 % (0-2); EOSINOPHILS 2.1 % (0-7); HEMOGLOBIN 9.4 g/dL (13.5-17.5); IMMATURE GRANULOCYTES 0.6 % (0-5); LYMPHOCYTES 32.2 % (15-50); MCH 29.3 pg (26.0-34.0); MCHC 32.4 g/dL (31.0-37.0); MCV 90.3 fL (80.0-100.0); MEAN PLATELET VOLUME 9.3 fL (7.4-10.4); MONOCYTES 6.4 % (2-11); NEUTROPHILS 58.5 % (40-80); PLATELET COUNT 178 10x3/uL (130-400); RBC 3.21 10x6/uL (4.20-6.10); RDW 15.7 % (11.5-14.5)
[2017-07-09 06:16] LABS: WBC 5.1 10x3/uL (4.8-10.8)
--- NOTE | 2017-07-09 06:28 | NUR ---
SBFQ=121. HUMALOG INSULIN 2 UNITS GIVEN SUBC PER S/S RT UPPER ABD.
[2017-07-09 06:34] LABS: ALBUMIN 2.9 g/dL (3.4-5.0); ALKALINE PHOSPHATASE 59 U/L (46-116); CARBON DIOXIDE 26.3 mmol/L (21.0-32.0); CHLORIDE - SERUM 103 mmol/L (98-107); CREATININE - SERUM 0.8 mg/dL (0.6-1.3); GLUCOSE 176 mg/dL (74-106); POTASSIUM - SERUM 3.7 mmol/L (3.5-5.1); PROTEIN - SERUM 6.5 g/dL (6.4-8.2); SODIUM 139 mmol/L (136-145); eGFR NON AFRICAN AMERICAN > 90 mL/min (90-120)
[2017-07-09 06:35] LABS: ALT (SGPT) 11 U/L (10-68); CALC OSMOLALITY 280 mosm/kg (275-300); UREA NITROGEN 10 mg/dL (7-18)
--- NOTE | 2017-07-09 07:30 | NUR ---
RECIEVED PT DURING WALKING ROUNDS, PT RESTING COMFORATBLY IN BED WITH NO COMPLAINTS OF PAIN OR DISCOMFORT AT THIS TIME. ASSESSMENT DONE PER FLOWSHEET. BED IN LOW POSITION AND CALL LIGHT WITHIN REACH. WILL CONTINUE TO MONITOR.
[2017-07-09 08:19] VITALS: BP 141/76
[2017-07-09 09:15] LABS: FOLATE (FOLIC ACID) - SERUM 11.6 ng/mL (>3.0)
--- NOTE | 2017-07-09 10:50 | NUR ---
Patient Name: MARTA LOTT Admission Status: ER Accout number: [id number] Admission Date: 07-06-2017 : 1945 Admission Diagnosis:SEPSIS, UNSPECIFIED ORGANISM Attending: MNIDI FERNANDEZ Current LOS: 3 Anticipated DC Date: 07-12-2017 Planned Disposition: Home Primary Insurance: [facility] Discharge Planning Comments: CM MET WITH PATIENT REGARDING D/C NEEDS AND PLANS. 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 COBB. PATIENT STATED SHE OR SOMEONE WOULD DRIVE HIM HOME AT DISCHARGE. PATIENT STATED HE HAS NO STEPS TO ENTER HOME AND HAS STAIRS ONCE INSIDE. PATIENT STATED HE DOES NOT HAVE TO USE STAIRS IN HIS HOME. PATIENT IS INDEPENDENT WITH HIS CARE AND HAS A GLUCOMETER AT HOME. PATIENTS PCP IS DR. COBB AND PHARMACY IS [facility]. PATIENT DOES NOT NEED HOME HEALTH AT THIS TIME. CM WILL CONTINUE TO FOLLOW PATIENT WITH D/C NEEDS AND PLANS. PCP DR[facility]- [phone] JANET () [phone] Purchasing Associate: Kristen Doe Is the patient Alert and Oriented? Yes 0 * How many steps to enter\exit or inside your home? 1 FLIGHT 0 * PCP DR. COBB 0 * [facility] 0 * Preadmission Environment Home with Family 0 * ADLs Independent 0 * Equipment Glucometer 0 * List name and contact numbers for known caregivers / representatives who currently or will assist patient after discharge: JANET LOTT () [phone] 0 * Community resources currently utilized None 0 * Additional services required to return to the preadmission environment? Yes 0 * Can the patient safely return to the preadmission environment? Yes 0 * Has this patient been hospitalized within the prior 30 days at any hospital? No 0 Grand Total: 0
[2017-07-09 12:16] VITALS: BP 143/75
--- NOTE | 2017-07-09 12:31 | NUR ---
NUTRITION F/U CHART REVIEWED, PT VISIT. PT WITH GOOD INTAKE RECENT MEALS. NO COMPLAINTS. WILL CONTINUE TO PROVIDE DIABETIC DIET, MONITOR INTAKE. RD FOLLOWING
[2017-07-09 14:22] LABS: SPE - ALBUMIN 2.9 g/dL (2.9-4.4); SPE - ALPHA-1 GLOBULIN 0.3 g/dL (0.0-0.4); SPE - ALPHA-2 GLOBULIN 0.8 g/dL (0.4-1.0); SPE - BETA GLOBULIN 0.9 g/dL (0.7-1.3); SPE - GAMMA GLOBULIN 0.8 g/dL (0.4-1.8); SPE - M-SPIKE Not Observed g/dL (Not Observed); SPE - TOTAL PROTEIN 5.8 g/dL (6.0-8.5)
[2017-07-09 16:12] VITALS: BP 140/65
[2017-07-09 19:30] VITALS: BP 139/58
--- NOTE | 2017-07-09 20:00 | NUR ---
ASSESSMENT PER FLOWSHEET. IV SALINE LOCKED TO RT AC. SITE CLEAR. SITTING ON SIDE OF BED. SR UP X2 CALL LIGHT WITHIN REACH. DENIES NEEDS.
--- NOTE | 2017-07-09 21:03 | NUR ---
MEDS GIVEN PER NOV. YZNX=170. HUMALOG INSULIN 8 UNITS GIVEN SUBC PER S/S TO LEFT ARM. C/O PAIN RT SHOULDER RATES LEVEL #5. OXYCONTIN TAB ONE PO GIVEN FOR PAIN CONTROL.
[2017-07-09 23:30] VITALS: BP 140/65
--- NOTE | 2017-07-10 | NUR ---
EYES CLOSED RESPIRATIONS WITH EASE AND UNLABORED.
--- NOTE | 2017-07-10 02:00 | NUR ---
IV LEAKING RESITED TO LEFT HAND #20 G ANGIOCATH X1 ATTEMPT. RESUMED IV ANTIBIOTIC.
[2017-07-10 03:30] VITALS: BP 147/67
--- NOTE | 2017-07-10 04:40 | NUR ---
EYES CLOSED RESPIRATIONS WITH EASE AND UNLABORED.
[2017-07-10 05:57] LABS: BASOPHILS 0.4 % (0-2); EOSINOPHILS 3.2 % (0-7); HEMATOCRIT 29.1 % (42.0-54.0); HEMOGLOBIN 9.3 g/dL (13.5-17.5); IMMATURE GRANULOCYTES 1.7 % (0-5); LYMPHOCYTES 35.7 % (15-50); MCH 28.8 pg (26.0-34.0); MCV 90.1 fL (80.0-100.0); MONOCYTES 7.8 % (2-11); NEUTROPHILS 51.2 % (40-80); PLATELET COUNT 201 10x3/uL (130-400); RBC 3.23 10x6/uL (4.20-6.10); RDW 15.7 % (11.5-14.5); WBC 5.4 10x3/uL (4.8-10.8)
[2017-07-10 06:40] LABS: ALBUMIN 3.1 g/dL (3.4-5.0); ALKALINE PHOSPHATASE 71 U/L (46-116); BILIRUBIN - TOTAL 0.79 mg/dL (0.2-1.3); CALCIUM 9.2 mg/dL (8.5-10.1); CHLORIDE - SERUM 103 mmol/L (98-107); CREATININE - SERUM 0.9 mg/dL (0.6-1.3); GLUCOSE 185 mg/dL (74-106); POTASSIUM - SERUM 3.9 mmol/L (3.5-5.1); PROTEIN - SERUM 6.9 g/dL (6.4-8.2); SODIUM 140 mmol/L (136-145); eGFR NON AFRICAN AMERICAN 88 mL/min (90-120)
[2017-07-10 06:41] LABS: ALT (SGPT) 14 U/L (10-68); CALC OSMOLALITY 284 mosm/kg (275-300); UREA NITROGEN 15 mg/dL (7-18)
--- NOTE | 2017-07-10 07:20 | NUR ---
SLEEPING AT THIS TIME WITH RESPIRATIONS EVEN AND NON LABORED. CALL LIGHT IN REACH, WILL CONTINUE WITH PLAN OF CARE.
[2017-07-10 08:10] VITALS: BP 158/75
--- NOTE | 2017-07-10 08:43 | NUR ---
SCHEDULED MEDICATIONS ADMINISTERED AT THIS TIME. IV TO LEFT HAND PATENT AND FLUSHES WITH EASE. DENIES NEEDS OR PAIN. CALL LIGHT IN REACH, WILL CONTINUE WITH PLAN OF CARE.
[2017-07-10 12:11] VITALS: BP 144/80
[2017-07-10 17:43] VITALS: BP 128/68
[2017-07-10 19:30] VITALS: BP 126/77
--- NOTE | 2017-07-10 20:00 | NUR ---
ASSESSMENT PER FLOWSHEET. IV PATENT LEFT HAND SALINE LOCKED. SITE CLEAR. UP AD CARMEN IN ROOM DENIES NEEDS.
--- NOTE | 2017-07-10 21:00 | NUR ---
MEDS GIVEN PER NOV. ZRFX=274 NO COVERAGE NEEDED. ADA HS SNACK GIVEN TO PATIENT. 100% CONSUMED.
[2017-07-10 23:30] VITALS: BP 141/62
--- NOTE | 2017-07-11 | NUR ---
EYES CLOSED RESPIRATIONS WITH EASE AND UNLABORED.
--- NOTE | 2017-07-11 02:45 | NUR ---
MEDS GIVEN PER MAR.
--- NOTE | 2017-07-11 03:30 | NUR ---
UP AD CARMEN TO BR VOIDS WELL.
[2017-07-11 04:00] VITALS: BP 154/81
--- NOTE | 2017-07-11 04:35 | NUR ---
IV ANTIBIOTIC COMPLETED. IV SALINE LOCKED.
[2017-07-11 05:25] LABS: BASOPHILS 0.2 % (0-2); EOSINOPHILS 2.4 % (0-7); HEMATOCRIT 28.3 % (42.0-54.0); HEMOGLOBIN 9.1 g/dL (13.5-17.5); IMMATURE GRANULOCYTES 2.6 % (0-5); LYMPHOCYTES 31.6 % (15-50); MCHC 32.2 g/dL (31.0-37.0); MCV 90.1 fL (80.0-100.0); MEAN PLATELET VOLUME 8.8 fL (7.4-10.4); MONOCYTES 8.5 % (2-11); NEUTROPHILS 54.7 % (40-80); PLATELET COUNT 207 10x3/uL (130-400); RBC 3.14 10x6/uL (4.20-6.10); RDW 15.8 % (11.5-14.5); WBC 5.1 10x3/uL (4.8-10.8)
[2017-07-11 05:53] LABS: ALBUMIN 2.9 g/dL (3.4-5.0); ALKALINE PHOSPHATASE 66 U/L (46-116); ALT (SGPT) 11 U/L (10-68); BILIRUBIN - TOTAL 0.43 mg/dL (0.2-1.3); CALC OSMOLALITY 282 mosm/kg (275-300); CARBON DIOXIDE 27.4 mmol/L (21.0-32.0); CHLORIDE - SERUM 102 mmol/L (98-107); CREATININE - SERUM 0.9 mg/dL (0.6-1.3); GLUCOSE 160 mg/dL (74-106); POTASSIUM - SERUM 3.7 mmol/L (3.5-5.1); PROTEIN - SERUM 6.4 g/dL (6.4-8.2); SODIUM 140 mmol/L (136-145); UREA NITROGEN 15 mg/dL (7-18); eGFR NON AFRICAN AMERICAN 88 mL/min (90-120)
--- NOTE | 2017-07-11 07:10 | NUR ---
REPORT RECEIVED FROM UNDERGROUND ELECTRICIAN NURSE. CALL LIGHT IN REACH.
--- NOTE | 2017-07-11 08:30 | NUR ---
ASSESSMENT COMPLETED. DOES NOT WANT SCDs ON AT THIS TIME.
[2017-07-11 09:22] VITALS: BP 150/75
--- NOTE | 2017-07-11 09:50 | NUR ---
AM MEDS ADMINISTERED PER STUDENT NURSE AND INSTRUCTOR.
--- NOTE | 2017-07-11 11:47 | NUR ---
SAMEERA PO. CALL LIGHT IN REACH.
--- NOTE | 2017-07-11 12:11 | NUR ---
STUDENT NURSE TOOK BLOOD SUGAR WHICH WAS 211. 12 UNITS INSULIN ADMINISTERED PER STUDENT NURSE AND INSTRUCTOR.
[2017-07-11 12:39] VITALS: BP 173/73
--- NOTE | 2017-07-11 14:17 | NUR ---
DENIES PAIN OR NEEDS AT THIS TIME. CALL LIGHT IN REACH.
[2017-07-11 15:59] VITALS: BP 128/62
--- NOTE | 2017-07-11 16:25 | NUR ---
RESTING QUIETLY IN BED AT THIS TIME. DENIES NEEDS. NO FEVER TODAY. REPORTS NO PAIN THIS STAY.
--- NOTE | 2017-07-11 17:49 | NUR ---
NO INSULIN D/T BS OF 107. METFORMIN PO. ANCEF 2 GM IVPB. CALL LIGHT IN REACH.
--- NOTE | 2017-07-11 18:38 | NUR ---
NO CHANGES IN INITIAL ASSESSMENT. STILL REFUSES SCDs. CALL LIGHT IN REACH. WILL CONTINUE WITH PLAN OF CARE.
--- NOTE | 2017-07-11 19:00 | NUR ---
REPORT RECEIVED AND CARE OF PT ASSUMED. PT LYING IN SEMI BLANDON'S POSITION WATCHING TV. IV IN LEFT HAND SALINE LOCKED. TELEMETRY IN PLACE AND READING 65 SR AT THIS ASSESSMENT. WILL MONITOR CLOSELY FOR NEEDS.
[2017-07-11 20:00] VITALS: BP 147/78
--- NOTE | 2017-07-11 22:14 | NUR ---
HS MEDICATIONS GIVEN. FSBS 131 THIS CHECK REQUIRING NO COVERAGE PER SLIDING SCALE.
[2017-07-12] VITALS (7 sets, daily range): BP systolic 103–166; BP diastolic 68–87
[2017-07-12 06:15] LABS: BASOPHILS 0.2 % (0-2); EOSINOPHILS 2.3 % (0-7); HEMOGLOBIN 9.4 g/dL (13.5-17.5); IMMATURE GRANULOCYTES 2.5 % (0-5); LYMPHOCYTES 32.7 % (15-50); MCH 28.3 pg (26.0-34.0); MCHC 31.3 g/dL (31.0-37.0); MCV 90.4 fL (80.0-100.0); MEAN PLATELET VOLUME 8.7 fL (7.4-10.4); MONOCYTES 8.8 % (2-11); NEUTROPHILS 53.5 % (40-80); PLATELET COUNT 228 10x3/uL (130-400); RBC 3.32 10x6/uL (4.20-6.10); RDW 15.7 % (11.5-14.5); WBC 5.1 10x3/uL (4.8-10.8)
[2017-07-12 06:49] LABS: ALBUMIN 3.1 g/dL (3.4-5.0); ALKALINE PHOSPHATASE 71 U/L (46-116); ALT (SGPT) 11 U/L (10-68); BILIRUBIN - TOTAL 0.38 mg/dL (0.2-1.3); CALC OSMOLALITY 282 mosm/kg (275-300); CALCIUM 9.1 mg/dL (8.5-10.1); CARBON DIOXIDE 28.3 mmol/L (21.0-32.0); CHLORIDE - SERUM 102 mmol/L (98-107); CREATININE - SERUM 0.9 mg/dL (0.6-1.3); GLUCOSE 173 mg/dL (74-106); POTASSIUM - SERUM 3.8 mmol/L (3.5-5.1); SODIUM 139 mmol/L (136-145); UREA NITROGEN 14 mg/dL (7-18); eGFR NON AFRICAN AMERICAN 88 mL/min (90-120)
--- NOTE | 2017-07-12 07:15 | NUR ---
REPORT RECEIVED FROM MECHANICAL LEAD NURSE. CALL LIGHT IN REACH.
--- NOTE | 2017-07-12 08:54 | NUR ---
ASSESSMENT COMPLETED. REFUSES SCDs. CALL LIGHT IN REACH.
--- NOTE | 2017-07-12 16:08 | NUR ---
CM NOTE: ORDERS FOR IV ABX PER DR. MCKENZIE FAXED TO [facility]. [facility] WAS FAXED ALL PAPERWORK NEEDED. CM EXPLAINED IF [facility] WAS NOT CALLED BACK TODAY TO CALL CELSA IN AM WITH [facility]. CM WILL COORDINATE IV ABX DELIVERY WITH PATIENTS DISCHARGE. [facility] SERVED JANET LOTT PATIENTS WILL BE HIS HOME HEALTH AND THIS WAS TOLD TO [facility].
--- NOTE | 2017-07-12 18:09 | NUR ---
MIDLINE STILL SLOWLY OOING BLOOD-AWARE OF THIS FROM PICC LINE NURSE. COBAN HAS BEEN APPLIED AND NOW ICE. NO NEEDS AT THIS TIME. WILL CONTINUE TO MONITOR
--- NOTE | 2017-07-12 19:00 | NUR ---
REPORT RECEIVED AND CARE OF PT ASSUMED. PT LYING IN SUPINE POSITION WATCHING TV. IV IN LEFT HAND SALINE LOCKED. LEFT PICC LINE SALINE LOCKED...OOZING BLOOD FROM INERTION SITE. ICE PACK APPLIED. WILL MONITOR KAREN.
--- NOTE | 2017-07-12 20:30 | NUR ---
NEW ICE PACK APPLIED TO LEFT UPPER ARM PICC LINE SITE...STILL OOZING BLOOD BUT DECREASED. WILL CONTINUE TO MONITOR.
--- NOTE | 2017-07-12 20:41 | NUR ---
HS MEDICATIONS GIVEN. FSBS 128 THIS CHECK, REQUIRING NO COVERAGE PER SLIDING SCALE.
--- NOTE | 2017-07-12 21:00 | NUR ---
HS SNACK OF DARRYN CRACKERS AND SKIM MILK PROVIDED PER DIET ORDERS.
--- NOTE | 2017-07-12 22:46 | NUR ---
GAVE RESTORIL 7.5 MG PO PER PT REQUEST FOR SLEEP...PER PRN ORDER.
--- NOTE | 2017-07-13 00:45 | NUR ---
PT SLEEPING IN SUPINE POSITION WITH EASY RESPIRATIONS. WILL CONTINUE TO MONITOR FOR NEEDS.
[2017-07-13 04:00] VITALS: BP 150/77
[2017-07-13 05:20] LABS: BASOPHILS 0.2 % (0-2); EOSINOPHILS 2.7 % (0-7); HEMATOCRIT 30.4 % (42.0-54.0); HEMOGLOBIN 9.8 g/dL (13.5-17.5); IMMATURE GRANULOCYTES 1.8 % (0-5); LYMPHOCYTES 31.6 % (15-50); MCH 29.2 pg (26.0-34.0); MCHC 32.2 g/dL (31.0-37.0); MCV 90.5 fL (80.0-100.0); MEAN PLATELET VOLUME 8.5 fL (7.4-10.4); MONOCYTES 9.3 % (2-11); NEUTROPHILS 54.4 % (40-80); PLATELET COUNT 253 10x3/uL (130-400); RBC 3.36 10x6/uL (4.20-6.10); RDW 15.7 % (11.5-14.5); WBC 5.5 10x3/uL (4.8-10.8)
[2017-07-13 05:25] LABS: INR 0.99 (0.85-1.17)
[2017-07-13 05:42] LABS: ALBUMIN 3.1 g/dL (3.4-5.0); ALKALINE PHOSPHATASE 66 U/L (46-116); ALT (SGPT) 10 U/L (10-68); CALC OSMOLALITY 280 mosm/kg (275-300); CALCIUM 9.3 mg/dL (8.5-10.1); CARBON DIOXIDE 29.4 mmol/L (21.0-32.0); CHLORIDE - SERUM 101 mmol/L (98-107); CREATININE - SERUM 0.8 mg/dL (0.6-1.3); GLUCOSE 155 mg/dL (74-106); PROTEIN - SERUM 6.8 g/dL (6.4-8.2); SODIUM 139 mmol/L (136-145); UREA NITROGEN 13 mg/dL (7-18); eGFR NON AFRICAN AMERICAN > 90 mL/min (90-120)
--- NOTE | 2017-07-13 06:17 | NUR ---
CHANGED DRESSING ON LEFT PICC LINE. LOTS OF OLD BLOOD CLOTS, BUT ACTIVE BLEEDING HAS STOPPED. STERILE PROCEDURE WAS MAINTAINED DURING DRESSING CHANGE.
--- NOTE | 2017-07-13 06:18 | NUR ---
CHANGED ALL LINENS.
--- NOTE | 2017-07-13 07:00 | NUR ---
REPORT RECEIVED, ASSUMED CARE OF PT. RESTING WITH EYES SHUT, EASILY AROUSED. L MIDLINE IN PLACE, SALINE LOCKED, DRSG C/D/I. L HAND IV SALINE LOCKED, DRSG C/D/I. TELEMETRY IN PLACE, SINUS RHYTHM AT 72 BPM. NO NEEDS VOICED AT THIS TIME. BED IN LOWEST POSITION, SIDE RAILS UP X 2, CALL LIGHT WITHIN REACH.
[2017-07-13 08:42] VITALS: BP 134/77
[2017-07-13] MEDS ORDERED: RIFADIN300 MG PO (12:49)
[2017-07-13] MEDS ORDERED: Ancef 2 GM/Dextrose IV (12:51)
[2017-07-13 12:52] VITALS: BP 149/77
[2017-07-13] MEDS ORDERED: COZAAR50 MG PO (12:52)
[2017-07-13] MEDS ORDERED: HCTZ25 MG PO (12:52)
--- NOTE | 2017-07-13 14:26 | NUR ---
LATE ENTRY 1350 TC TO [facility]. LEFT MESSAGE AND RECEIVED CALL BACK FROM JESSICA. ADVISED HER THAT THE PATIENT IS BEING DISCHARGED TODAY. FAXED DISCHARGE ORDERS. JESSICA WILL DELIVER MEDICATION AND SUPPLIES. PATIENT IS RECEIVING HIS 1400 DOSE OF MEDICATION. ADVISED JESSICA OF HIS PRESENT ADMINISTRATION SCHEDULE. NO TELEPHONIC MESSAGE ON CM PHONE REGARDING COST FROM THE AM.
[2017-07-13] MEDS ORDERED: CEFAZOLIN2 GM/50 ML IV (15:05)
[2017-07-13] MEDS ORDERED: ANCEF 1 GM/D5W 51 G1 IV (15:14)
--- NOTE | 2017-07-13 15:40 | NUR ---
L HAND IV D/C'D, CATHETER TIP INTACT, BLEED CONTROL, BANDAGE APPLIED.
--- NOTE | 2017-07-13 15:52 | NUR ---
DISCHARGE INSTRUCTIONS GIVEN TO PT AND FAMILY, VERBALIZED UNDERSTANDING AND PAPERS SIGNED. DISCHARGED FROM FLOOR WITH FAMILY AND PERSONAL BELONGINGS VIA WHEELCHAIR.
== END 2017-07-13 15:54 | disposition home or self-care (01) | DRG 871 ==
LOC: D.ER 23:50 → D.MS 07-06 02:05 → OBSVTIME 07-06 02:05 → D.MS 07-06 18:09 → D.SDCHOLD 07-08 14:47 → D.MS 07-08 14:49
PROVIDERS: Emergency Medicine; Family Medicine; Physician Assistant Medical; Student in an Organized Health Care Education/Training Program; ADMIT Family Medicine
PROC: 05HF33Z Insertion of Infusion Device into Left Cephalic Vein, Percutaneous Approach (ICD-10-PCS; principal; 2017-07-12)
PROC: B54NZZA Ultrasonography of Left Upper Extremity Veins, Guidance (ICD-10-PCS; 2017-07-12)
DX: A41.9 Sepsis, unspecified organism (principal); I33.0 Acute and subacute infective endocarditis; M00.9 Pyogenic arthritis, unspecified; B95.61 Methicillin susceptible Staphylococcus aureus infection as the cause of diseases classified elsewhere; M75.01 Adhesive capsulitis of right shoulder; D64.89 Other specified anemias; E11.65 Type 2 diabetes mellitus with hyperglycemia; N40.0 Benign prostatic hyperplasia without lower urinary tract symptoms; Z95.810 Presence of automatic (implantable) cardiac defibrillator; I25.10 Atherosclerotic heart disease of native coronary artery without angina pectoris

== ENCOUNTER → 2017-07-31 13:33 | Outpatient (CLI) | payer MEDICARE ==
[2017-07-06 10:15] VITALS: BMI 31.1
[~2017-07-31 13:33] MED LIST changes: +ANCEF 1 GM/D5W 51 G1 IV; +Ancef 2 GM/Dextrose IV; +COZAAR50 MG PO; +CRESTOR20 MG PO; +HCTZ25 MG PO; +RIFADIN300 MG PO
--- NOTE | 2017-07-31 15:02 | NUR ---
1500 DISCHARGE INSTRUCTIONS COMPLETE. PT HAS NO QUESTIONS OR CONCERNS AT THIS TIME. ESCORTED OUT.
== END | disposition home or self-care (01) ==
LOC: D.OPS 13:33
DX: I33.0 Acute and subacute infective endocarditis (principal)